=== PATIENT | male | born 1960 | race African-American/Black ===

== ENCOUNTER 2016-08-17 14:24 | Inpatient (IN) | payer OTHER ==
[2016-08-17 17:36] VITALS: BMI 26.4
--- NOTE | 2016-08-17 17:52 | HP ---
Admission ROS [facility] Chief Complaint: I AM HERE FOR REHAB FROM HEROIN,ALCOHOL AND COCAINE Allergies/Adverse Reactions: Allergies Allergy/AdvReac Type Severity Reaction Status Date / Time lactose Allergy Severe Verified 08/17/16 17:36 pork derived (porcine) Allergy Severe Rash Verified 08/17/16 17:36 History of Present Illness: THIS 56 YEARS OLD WITH HEROIN,ALCOHOL,COCAINE DEPENDENCE,REFER FROM [place] FOR REHAB,DISCHARGE FROM [place] TODAY HTN AND HYPERLIDEMIA LONGEST PERIOD OF SOBRIETY 8 YEARS Exam Limitations: No Limitations - Ebola screening Have you traveled outside of the country in the last 21 days: No Have you had contact with anyone from an Ebola affected area: No Have you been sick,other than usual withdrawal symptoms: No - Review of Systems Constitutional: No Symptoms Reported EENT: reports: No Symptoms Reported Respiratory: reports: No Symptoms reported Cardiac: reports: No Symptoms Reported GI: reports: No Symptoms Reported : reports: No Symptoms Reported Musculoskeletal: reports: No Symptoms Reported Integumentary: reports: No Symptoms Reported Neuro: reports: No Symptoms reported Endocrine: reports: No Symptoms Reported Hematology: reports: No Symptoms Reported Psychiatric: reports: No Sypmtoms Reported, Judgement Intact, Mood/Affect Appropiate Patient History - Patient Medical History Hx Anemia: No Hx Asthma: No Hx Chronic Obstructive Pulmonary Disease (COPD): No Hx Cancer: No Hx Cardiac Disorders: No Hx Congestive Heart Failure: No Hx Hypertension: Yes (NON COMPLIANT) Hx Hypercholesterolemia: Yes HX Cerebrovascular Accident: Yes (OLD CVA 2015 ) Hx Seizures: No Hx Dementia: No Hx Diabetes: No Hx Gastrointestinal Disorders: No Hx Liver Disease: No Hx Genitourinary Disorders: No Hx Sexually Transmitted Disorders: No Hx Renal Disease (ESRD): No Hx Thyroid Disease: No Hx Human Immunodeficiency Virus (HIV): No (LAST 2017 NEGATIVE) Hx Hepatitis C: No Hx Depression: No Hx Suicide Attempt: No Hx Bipolar Disorder: No Hx Schizophrenia: No Other Medical History: NO SUICIDAL,NO HOMICIDAL - Patient Surgical History Past Surgical History: No - PPD History Previous Implant?: Yes Documented Results: Positive w/o proof Implanted On Prior [facility] Admission?: No PPD to be Administered?: No - Smoking Cessation Smoking history: Current every day smoker Have you smoked in the past 12 months: Yes Aproximately how many cigarettes per day: 20 Cigars Per Day: 0 Hx Chewing Tobacco Use: No Initiated information on smoking cessation: Yes 'Breaking Loose' booklet given: 08/17/16 - Substance & Tx. History Hx Alcohol Use: Yes Hx Substance Use: Yes Substance Use Type: Alcohol, Cocaine, Heroin Hx Substance Use Treatment: Yes ([facility] DISCHARGE 08/17/16) Family Disease History - Family Disease History Family Disease History: Other: Father (DSA,ALCOHOL,), Mother (DSA, ALCOHOL,) Admission Physical Exam [facility] - Vital Signs Vital Signs: Vital Signs - 24 hr 08/17/16 17:34 Temperature 95.8 F L Pulse Rate 89 Respiratory 18 Rate Blood Pressure 140/85 - Physical General Appearance: Yes: Within Normal Limits HEENTM: Yes: Within Normal Limits, Hearing grossly Normal, Normal ENT Inspection , Normocephalic Respiratory: Yes: Lungs Clear, Normal Breath Sounds, No Respiratory Distress Neck: Yes: Within Normal Limits, Supple, Trachea in good position Breast: Yes: Within Normal Limits Cardiology: Yes: Within Normal Limits, Regular Rhythm, Regular Rate, S1, S2 Abdominal: Yes: Within Normal Limits, Normal Bowel Sounds, Flat, Soft Genitourinary: Yes: Within Normal Limits Back: Yes: Within Normal Limits Musculoskeletal: Yes: Within Normal Limits Extremities: Yes: Within Normal Limits, Normal Inspection, Normal Range of Motion Neurological: Yes: cut pressman II-XII NML intact, Fully Oriented, Alert, Motor Strength 5/5 Integumentary: Yes: Within Normal Limits Lymphatic: Yes: Within Normal Limits - Diagnostic (1) Opioid dependence Current Visit: Yes Status: Acute Comment: DEPENDENCE (2) Alcohol dependence Current Visit: Yes Status: Acute (3) Cocaine dependence Current Visit: Yes Status: Acute (4) Essential (primary) hypertension Current Visit: Yes Status: Acute (5) Hyperlipidemia Current Visit: Yes Status: Acute (6) Nicotine dependence Current Visit: Yes Status: Acute (7) Old cerebrovascular accident (CVA) without late effect Current Visit: Yes Status: Acute Cleared for Admission [facility] - Detox or Rehab Claeared for Rehab Admission: Yes [facility] Breath Alcohol Content Breath Alcohol Content: 0 Urine Drug Screen - Results Drug Screen Negative: No Urine Drug Screen Results: STACY-Cocaine, BZO-Benzodiazepines, MTD-Methadone
[2016-08-17] MEDS ORDERED: MAG HYDROX/AL HYDROX/SIMETH 30 ML UNIT-DOSE CUP PO PRN (18:08)
[2016-08-17] MEDS ORDERED: MENTHOL/PHENOL 1 EACH UD MM PRN (18:08)
[2016-08-17] MEDS ORDERED: MAGNESIUM CITRATE 300 ML BOTTLE PO PRN (18:08)
[2016-08-17] MEDS ORDERED: guaiFENesin/D-METHORPHAN HB 10 ML UNIT-DOSE CUPS PO PRN (18:08)
[2016-08-17] MEDS ORDERED: ACETAMINOPHEN 325 MG TABLET (FP) PO PRN (18:08)
[2016-08-17] MEDS ORDERED: hydrOXYzine PAMOATE 50 MG CAPSULE (FP) PO PRN (18:08)
[2016-08-17] MEDS ORDERED: MAGNESIUM HYDROX 2400MG/30ML ORAL SUSPENSION 30 ML CUP PO PRN (18:08)
[2016-08-17] MEDS ORDERED: LOPERAMIDE HCL 2 MG CAPSULE PO PRN (18:08)
[2016-08-17] MEDS ORDERED: IBUPROFEN 400 MG TABLET (FP) PO PRN (18:08)
[2016-08-17] MEDS: ATORVASTATIN CA 10 MG TABLET (FP) PO SCH (21:53)
[2016-08-17] MEDS: diphenhydrAMINE HCL 50 MG CAPSULE PO PRN (21:53)
[2016-08-17] MEDS: THIAMINE HCL 100 MG TABLET (FP) PO SCH (21:53)
[2016-08-17 23:30] LABS: URINE APPEARANCE CLEAR; URINE BILIRUBIN NEGATIVE (NEGATIVE); URINE BLOOD NEGATIVE (NEGATIVE); URINE COLOR STRAW; URINE GLUCOSE (UA) NEGATIVE (NEGATIVE); URINE KETONE NEGATIVE (NEGATIVE); URINE LEUK ESTERASE NEGATIVE (NEGATIVE); URINE NITRITE NEGATIVE (NEGATIVE); URINE PROTEIN NEGATIVE (NEGATIVE); URINE UROBILINOGEN NEGATIVE E.U./dl (0.2-1.0)
[2016-08-18] MEDS: LISINOPRIL 10 MG TABLET (FP) PO SCH (10:37)
[2016-08-18] MEDS: amLODIPine BESYLATE 5 MG TABLET (FP) PO SCH (10:37)
[2016-08-18] MEDS: PRENATAL VITAMINS W/ FOLIC ACID TABLET (FP) PO SCH (10:37)
--- NOTE | 2016-08-18 11:14 | EKG ---
Test Reason : Blood Pressure : / mmHG Vent. Rate : 096 BPM Atrial Rate : 096 BPM P-R Int : 120 ms QRS Dur : 084 ms QT Int : 348 ms P-R-T Axes : 068 044 046 degrees QTc Int : 439 ms NORMAL SINUS RHYTHM MODERATE VOLTAGE CRITERIA FOR LVH, MAY BE NORMAL VARIANT BORDERLINE ECG NO PREVIOUS ECGS AVAILABLE Confirmed by JESSICA DEL RIO MD ([id number]) on 08/18/2016 11:13:55 AM Referred By: Confirmed By:JESSICA DEL RIO MD
--- NOTE | 2016-08-18 11:15 | HP ---
Psychiatrist Admission - Data Date of interview: 08/18/16 Admission source: [facility] Identifying data: This is the first 5N inpatient rehabilitation admission for this 56 year old single black male, father of 2, who is unemployed and on SSI, currently homeless. Medical History: HTN and Hyperlipedemia , smokes cigarettes 10 a day. Psychiatric History: Patient denies history of psychiatric treatment. Physical/Sexual Abuse/Trauma History: Patient denies history of sexual, phsyical and verbal abuse. Additional Comment: Patient reports that he spent 2 days in detox at [facility] and was discharged, has not been feeling well since hie discharge and asked to stay in bed for a few hours. Vital Signs: Vital Signs - 24 hr 08/17/16 08/17/16 08/18/16 17:34 22:31 00:41 Temperature 95.8 F L Pulse Rate 89 99 H Respiratory 18 18 18 Rate Blood Pressure 140/85 144/77 08/18/16 08/18/16 03:30 06:41 Temperature 97.3 F L Pulse Rate 85 Respiratory 16 18 Rate Blood Pressure 126/71 Allergies/Adverse Reactions: Allergies Allergy/AdvReac Type Severity Reaction Status Date / Time lactose Allergy Severe Verified 08/17/16 17:36 pork derived (porcine) Allergy Severe Rash Verified 08/17/16 17:36 No Known Drug Allergies Allergy Verified 08/17/16 18:31 Date of last physical exam: 08/17/16 Concur with the findings of this exam: Yes - Substance Abuse/Tx History Hx Alcohol Use: Yes Hx Substance Use: Yes Substance Use Type: Alcohol (one half pint of vodka), Cocaine ($300 a day), Heroin (sniffs 7 bags a day.) Hx Substance Use Treatment: Yes - Admission Criteria Previous failed treatment: Yes Poor recovery environment: Yes Comorbidities: Yes Lacks judgement: Yes Mental Status Exam - Mental Status Exam Alert and Oriented to: Time, Place, Person Cognitive Function: Good Patient Appearance: Well Groomed Mood: Sad, Anxious Affect: Mood Congruent Patient Behavior: Appropriate, Cooperative Speech Pattern: Clear, Appropriate Voice Loudness: Normal Thought Process: Intact Thought Disorder: Not Present Hallucinations: Denies Suicidal Ideation: Denies Homicidal Ideation: Denies Insight/Judgement: Fair Sleep: Fair Appetite: Good Muscle strength/Tone: Normal Gait/Station: Normal Psychiatric Findings - Problem List ([place] 1, 2,3) (1) Alcohol dependence Current Visit: Yes Status: Acute (2) Cocaine dependence Current Visit: Yes Status: Acute (3) Essential (primary) hypertension Current Visit: Yes Status: Acute (4) Hyperlipidemia Current Visit: Yes Status: Acute (5) Nicotine dependence Current Visit: Yes Status: Acute (6) Opioid dependence Current Visit: Yes Status: Acute Comment: DEPENDENCE - Initial Treatment Plan Initial Treatment Plan: patient was referred to MD, he was made aware of Vistaril PRN for anxiety, he was excused from am groups, will billyitnue to monitor progress.
[2016-08-18] MEDS ORDERED: CYCLOBENZAPRINE HCL 10 MG TABLET (FP) PO PRN (11:47)
[2016-08-18] MEDS ORDERED: cloNIDine HCL 0.1 MG TABLET PO SCH (12:00)
[2016-08-18] MEDS: cloNIDine HCL 0.1 MG TABLET PO SCH ×2 (14:56→21:59)
[2016-08-18 15:54] LABS: MCH 22.5 pg (25.7-33.7); MCHC 30.8 g/dl (32.0-35.9); MEAN PLT VOLUME 8.5 fl (7.5-11.1); PLATELET COUNT 246 K/MM3 (134-434); RDW 15.2 % (11.9-15.9); WHITE BLOOD COUNT 4.9 K/mm3 (4.0-10.0)
[2016-08-18 16:25] LABS: ANION GAP 11 (8-16); BILIRUBIN,TOTAL 0.3 mg/dL (0.2-1.0); CALCIUM 8.5 mg/dL (8.5-10.1); CO2 28 mmol/L (21-32); COCKROFT - GAULT 101.4; CREATININE 1.1 mg/dL (0.7-1.3); GLUCOSE,RANDOM 121 mg/dL (74-106); SGOT/AST 19 U/L (15-37); SGPT/ALT 22 U/L (12-78); TOT PROT 6.3 g/dl (6.4-8.2)
[2016-08-18 16:26] LABS: ALK PHOS 66 U/L (45-117)
[2016-08-18 18:03] LABS: SICKLE CELL SCREEN NEGATIVE (NEGATIVE)
[2016-08-18 20:31] LABS: HIV 1 & 2 AB NEGATIVE; HIV 1 AGp24 NEGATIVE
[2016-08-18] MEDS: THIAMINE HCL 100 MG TABLET (FP) PO SCH (21:59)
[2016-08-18] MEDS: ATORVASTATIN CA 10 MG TABLET (FP) PO SCH (21:59)
[2016-08-18] MEDS: diphenhydrAMINE HCL 50 MG CAPSULE PO PRN (22:00)
[2016-08-19] MEDS: LISINOPRIL 10 MG TABLET (FP) PO SCH (10:49)
[2016-08-19] MEDS: PRENATAL VITAMINS W/ FOLIC ACID TABLET (FP) PO SCH (10:49)
[2016-08-19] MEDS: cloNIDine HCL 0.1 MG TABLET PO SCH ×2 (10:49→21:45)
[2016-08-19] MEDS: amLODIPine BESYLATE 5 MG TABLET (FP) PO SCH (10:49)
[2016-08-19] MEDS: ATORVASTATIN CA 10 MG TABLET (FP) PO SCH (21:45)
[2016-08-19] MEDS: THIAMINE HCL 100 MG TABLET (FP) PO SCH (21:45)
[2016-08-20] MEDS: LISINOPRIL 10 MG TABLET (FP) PO SCH (10:43)
[2016-08-20] MEDS: amLODIPine BESYLATE 5 MG TABLET (FP) PO SCH (10:43)
[2016-08-20] MEDS: cloNIDine HCL 0.1 MG TABLET PO SCH ×2 (10:43→21:44)
[2016-08-20] MEDS: PRENATAL VITAMINS W/ FOLIC ACID TABLET (FP) PO SCH (10:43)
[2016-08-20] MEDS: ATORVASTATIN CA 10 MG TABLET (FP) PO SCH (21:44)
[2016-08-20] MEDS: THIAMINE HCL 100 MG TABLET (FP) PO SCH (21:44)
[2016-08-20] MEDS: diphenhydrAMINE HCL 50 MG CAPSULE PO PRN (21:45)
[2016-08-21] MEDS: PRENATAL VITAMINS W/ FOLIC ACID TABLET (FP) PO SCH (10:54)
[2016-08-21] MEDS: cloNIDine HCL 0.1 MG TABLET PO SCH ×2 (10:54→22:09)
[2016-08-21] MEDS: LISINOPRIL 10 MG TABLET (FP) PO SCH (10:54)
[2016-08-21] MEDS: amLODIPine BESYLATE 5 MG TABLET (FP) PO SCH (10:54)
[2016-08-21] MEDS: THIAMINE HCL 100 MG TABLET (FP) PO SCH (22:09)
[2016-08-21] MEDS: diphenhydrAMINE HCL 50 MG CAPSULE PO PRN (22:09)
[2016-08-21] MEDS: ATORVASTATIN CA 10 MG TABLET (FP) PO SCH (22:09)
[2016-08-22] MEDS: PRENATAL VITAMINS W/ FOLIC ACID TABLET (FP) PO SCH (10:36)
[2016-08-22] MEDS: amLODIPine BESYLATE 5 MG TABLET (FP) PO SCH (10:36)
[2016-08-22] MEDS: LISINOPRIL 10 MG TABLET (FP) PO SCH (10:36)
[2016-08-22] MEDS: OXYMETAZOLINE 0.05% NASAL SOLUTION 15 ML BOTTLE NS PRN ×2 (10:47→21:41)
--- NOTE | 2016-08-22 12:45 | PN ---
[facility] Progress Note Note: POSSIBLE LIPOMA LEFT FRONTAL AREA SIZE 1X1 CM,NO PAIN,MOVABLE,HAS THIS FOR A WHILE, NO COMPLAINT,ADVISE TO SEE PCP AFER DISCHARGE FOR FOLLOW UP
[2016-08-22] MEDS: P-EPHED 60MG/TRIPROLIDI 2.5MG TABLET PO PRN (14:31)
[2016-08-22] MEDS: ATORVASTATIN CA 10 MG TABLET (FP) PO SCH (21:39)
[2016-08-22] MEDS: THIAMINE HCL 100 MG TABLET (FP) PO SCH (21:39)
[2016-08-23] MEDS: PRENATAL VITAMINS W/ FOLIC ACID TABLET (FP) PO SCH (10:32)
[2016-08-23] MEDS: amLODIPine BESYLATE 5 MG TABLET (FP) PO SCH (10:32)
[2016-08-23] MEDS: LISINOPRIL 10 MG TABLET (FP) PO SCH (10:32)
[2016-08-23] MEDS: P-EPHED 60MG/TRIPROLIDI 2.5MG TABLET PO PRN (10:34)
[2016-08-23] MEDS: ATORVASTATIN CA 10 MG TABLET (FP) PO SCH (21:45)
[2016-08-23] MEDS: THIAMINE HCL 100 MG TABLET (FP) PO SCH (21:45)
[2016-08-23] MEDS: OXYMETAZOLINE 0.05% NASAL SOLUTION 15 ML BOTTLE NS PRN (21:46)
[2016-08-23] MEDS: diphenhydrAMINE HCL 50 MG CAPSULE PO PRN (22:55)
[2016-08-24] MEDS: amLODIPine BESYLATE 5 MG TABLET (FP) PO SCH (10:17)
[2016-08-24] MEDS: LISINOPRIL 10 MG TABLET (FP) PO SCH (10:17)
[2016-08-24] MEDS: PRENATAL VITAMINS W/ FOLIC ACID TABLET (FP) PO SCH (10:17)
[2016-08-24] MEDS: P-EPHED 60MG/TRIPROLIDI 2.5MG TABLET PO PRN (10:18)
[2016-08-24] MEDS: THIAMINE HCL 100 MG TABLET (FP) PO SCH (21:54)
[2016-08-24] MEDS: diphenhydrAMINE HCL 50 MG CAPSULE PO PRN (21:54)
[2016-08-24] MEDS: ATORVASTATIN CA 10 MG TABLET (FP) PO SCH (21:54)
[2016-08-25] MEDS: PRENATAL VITAMINS W/ FOLIC ACID TABLET (FP) PO SCH (10:37)
[2016-08-25] MEDS: LISINOPRIL 10 MG TABLET (FP) PO SCH (10:37)
[2016-08-25] MEDS: amLODIPine BESYLATE 5 MG TABLET (FP) PO SCH (10:37)
[2016-08-25] MEDS: P-EPHED 60MG/TRIPROLIDI 2.5MG TABLET PO PRN (10:39)
[2016-08-25] MEDS: THIAMINE HCL 100 MG TABLET (FP) PO SCH (21:54)
[2016-08-25] MEDS: ATORVASTATIN CA 10 MG TABLET (FP) PO SCH (21:54)
[2016-08-25] MEDS: diphenhydrAMINE HCL 50 MG CAPSULE PO PRN (21:54)
[2016-08-25] MEDS: SODIUM CHLORIDE NASAL SPRAY 44 ML BOTTLE NS PRN (21:55)
[2016-08-26] MEDS: LISINOPRIL 10 MG TABLET (FP) PO SCH (10:20)
[2016-08-26] MEDS: PRENATAL VITAMINS W/ FOLIC ACID TABLET (FP) PO SCH (10:20)
[2016-08-26] MEDS: amLODIPine BESYLATE 5 MG TABLET (FP) PO SCH (10:20)
[2016-08-26] MEDS: THIAMINE HCL 100 MG TABLET (FP) PO SCH (21:55)
[2016-08-26] MEDS: ATORVASTATIN CA 10 MG TABLET (FP) PO SCH (21:55)
[2016-08-26] MEDS: diphenhydrAMINE HCL 50 MG CAPSULE PO PRN (21:55)
[2016-08-26] MEDS: SODIUM CHLORIDE NASAL SPRAY 44 ML BOTTLE NS PRN (21:57)
[2016-08-27] MEDS: PRENATAL VITAMINS W/ FOLIC ACID TABLET (FP) PO SCH (10:34)
[2016-08-27] MEDS: amLODIPine BESYLATE 5 MG TABLET (FP) PO SCH (10:34)
[2016-08-27] MEDS: LISINOPRIL 10 MG TABLET (FP) PO SCH (10:34)
[2016-08-27] MEDS: ATORVASTATIN CA 10 MG TABLET (FP) PO SCH (21:49)
[2016-08-27] MEDS: THIAMINE HCL 100 MG TABLET (FP) PO SCH (21:49)
[2016-08-27] MEDS: diphenhydrAMINE HCL 50 MG CAPSULE PO PRN (21:49)
[2016-08-27] MEDS: SODIUM CHLORIDE NASAL SPRAY 44 ML BOTTLE NS PRN (21:51)
[2016-08-28] MEDS: SODIUM CHLORIDE NASAL SPRAY 44 ML BOTTLE NS PRN ×2 (10:27→22:03)
[2016-08-28] MEDS: PRENATAL VITAMINS W/ FOLIC ACID TABLET (FP) PO SCH (10:27)
[2016-08-28] MEDS: amLODIPine BESYLATE 5 MG TABLET (FP) PO SCH (10:27)
[2016-08-28] MEDS: LISINOPRIL 10 MG TABLET (FP) PO SCH (10:27)
[2016-08-28] MEDS: ATORVASTATIN CA 10 MG TABLET (FP) PO SCH (22:03)
[2016-08-28] MEDS: diphenhydrAMINE HCL 50 MG CAPSULE PO PRN (22:03)
[2016-08-28] MEDS: THIAMINE HCL 100 MG TABLET (FP) PO SCH (22:03)
[2016-08-29] MEDS: amLODIPine BESYLATE 5 MG TABLET (FP) PO SCH (10:39)
[2016-08-29] MEDS: SODIUM CHLORIDE NASAL SPRAY 44 ML BOTTLE NS PRN (10:39)
[2016-08-29] MEDS: LISINOPRIL 10 MG TABLET (FP) PO SCH (10:39)
[2016-08-29] MEDS: PRENATAL VITAMINS W/ FOLIC ACID TABLET (FP) PO SCH (10:39)
--- NOTE | 2016-08-29 18:10 | PN ---
Psychiatric Progress Note Vital Signs: Vital Signs Period Temp Pulse Resp BP Sys/Yao Pulse Ox Last 24 Hr 98.3 F 76-95 16-18 109-142/75-75 Chief Complaint:: Discharge Note HPI: Patient addressing Alcohol, Opoid and Cocaine Dependence comorbid with Nicotine Depencence ROS: HTN, Hyperlipidemia and type 2 DM were medically managed Current Medications: Active Medications Generic Name Dose Route Start Last Admin Trade Name Freq PRN Reason Stop Dose Admin Acetaminophen 650 mg 08/17/16 18:08 08/18/16 10:39 Tylenol - PO 650 mg Q4H PRN Administration PAIN Al Hydroxide/Mg Hydroxide 30 ml 08/17/16 18:08 Mylanta Oral Suspension - PO Q6H PRN DYSPEPSIA Amlodipine Besylate 5 mg 08/18/16 10:00 08/29/16 10:39 Norvasc - PO 5 mg DAILY BUBBA Administration Atorvastatin Calcium 10 mg 08/17/16 22:00 08/28/16 22:03 Lipitor - PO 10 mg HS BUBBA Administration Diphenhydramine HCl 50 mg 08/17/16 18:08 08/28/16 22:03 Benadryl - PO 50 mg HSMR1 PRN Administration INSOMNIA Eucalyptus/Menthol/Phenol/Sorbitol 1 each 08/17/16 18:08 Cepastat Lozenge - MM Q4H PRN SORE THROAT Guaifenesin 10 ml 08/17/16 18:08 Robitussin Dm - PO Q6H PRN COUGH Hydroxyzine Pamoate 50 mg 08/17/16 18:08 08/18/16 10:39 Vistaril - PO 50 mg Q4H PRN Administration AGITATION Ibuprofen 400 mg 08/17/16 18:08 Motrin - PO Q6H PRN SEVERE PAIN Lisinopril 10 mg 08/18/16 10:00 08/29/16 10:39 Prinivil PO 10 mg DAILY UBBBA Administration Loperamide HCl 4 mg 08/17/16 18:08 Imodium - PO Q6H PRN DIARRHEA Magnesium Citrate 300 ml 08/17/16 18:08 Citroma - PO Q48H PRN CONSTIPATION Magnesium Hydroxide 30 ml 08/17/16 18:08 Milk Of Magnesia - PO DAILY PRN CONSTIPATION Multivit/Folic Acid/Iron 1 tab 08/18/16 10:00 08/29/16 10:39 Vitamins ([facility]) - PO 1 tab DAILY BUBBA Administration Pseudoephedrine/Triprolidine 1 combo 08/17/16 18:08 08/25/16 10:39 Actifed - PO 1 combo TID PRN Administration NASAL CONGESTION Sodium Chloride 2 spray 08/25/16 13:08 08/29/16 10:39 [place] - NS 2 spray TID PRN Administration NASAL CONGESTION Thiamine HCl 100 mg 08/17/16 22:00 08/28/16 22:03 Vitamin B1 - PO 100 mg HS BUBBA Administration Current Side Effect: No Lab tests ordered: Yes Lab tests reviewed: Yes Provider note:: Patient will be dischaged on 08/30/16. He has met his treatment goals and will continue addressing his issues in terminal gauger treatment at [facility] in [place], [place]. Told literary writer that from his participation in this program, he has learned the importance of establishing a sober support network. He is stable for discharge on 08/30/16 Total face to face time:: 35 Mental Status Exam - Mental Status Exam Alert and Oriented to: Time, Place, Person Cognitive Function: Fair Patient Appearance: Well Groomed Mood: Hopeful, Euthymic Affect: Appropriate Patient Behavior: Cooperative Speech Pattern: Clear Voice Loudness: Normal Thought Process: Intact, Goal Oriented Thought Disorder: Not Present Hallucinations: Denies Suicidal Ideation: Denies Homicidal Ideation: Denies Insight/Judgement: Fair Sleep: Fair Appetite: Good Muscle strength/Tone: Normal Gait/Station: Normal Psychiatric Treatment Plan - Problem List (1) Alcohol dependence Current Visit: Yes (2) Opioid dependence Current Visit: Yes Comment: DEPENDENCE (3) Cocaine dependence Current Visit: Yes (4) Nicotine dependence Current Visit: Yes (5) DM2 (diabetes mellitus, type 2) Current Visit: Yes (6) Essential (primary) hypertension Current Visit: Yes (7) Hyperlipidemia Current Visit: Yes (8) Old cerebrovascular accident (CVA) without late effect Current Visit: Yes Initial treatment plan: Patient will be discharged tomorow and referred to [facility] for senior living treatment
[2016-08-29] MEDS: ATORVASTATIN CA 10 MG TABLET (FP) PO SCH (21:42)
[2016-08-29] MEDS: THIAMINE HCL 100 MG TABLET (FP) PO SCH (21:42)
[2016-08-29] MEDS: diphenhydrAMINE HCL 50 MG CAPSULE PO PRN (21:42)
[2016-08-30 07:06] VITALS: BP 135/74; PULSE 78; TEMP 98.1
== END 2016-08-30 08:15 | disposition home or self-care (01) | DRG 772 ==
LOC: YASAS 14:24 → Y5N 17:39
PROVIDERS: ADMIT Psychiatry & Neurology Psychiatry; ATTEND Psychiatry & Neurology Psychiatry
PROC: HZ42ZZZ Group Counseling for Substance Abuse Treatment, Cognitive-Behavioral (ICD-10-PCS; principal; 2016-08-17)
DX: F11.20 Opioid dependence, uncomplicated (principal); F10.20 Alcohol dependence, uncomplicated; F14.20 Cocaine dependence, uncomplicated; F17.210 Nicotine dependence, cigarettes, uncomplicated; I10 Essential (primary) hypertension; E78.5 Hyperlipidemia, unspecified; Z86.73 Personal history of transient ischemic attack (TIA), and cerebral infarction without residual deficits; Z91.14 Patient's other noncompliance with medication regimen
CPT/HCPCS: 36415; 71020-TC; 80053; 81003; 85027; 85660; 86593; 87389; 93005; 93010

== ENCOUNTER 2017-01-18 15:53 | Inpatient (IN) | payer OTHER ==
[2017-01-18 18:21] VITALS: BMI 24.4
--- NOTE | 2017-01-18 22:25 | HP ---
Admission ROS [facility] - [facility] Chief Complaint: I WANT TO GO TO REHAB Allergies/Adverse Reactions: Allergies Allergy/AdvReac Type Severity Reaction Status Date / Time lactose Allergy Severe Verified 08/17/16 17:36 pork derived (porcine) Allergy Severe Rash Verified 08/17/16 17:36 No Known Drug Allergies Allergy Verified 08/17/16 18:31 History of Present Illness: 56 YEARS OLD MALE WITH LONG HISTORY OF HEROIN COCAINE NICOTINE DEPENDENCE HAS HYPERTENSION HYPERLIPIDEMIA POSITIVE PPD IS ADMITTED TO REHAB Exam Limitations: No Limitations - Ebola screening Have you traveled outside of the country in the last 21 days: No Have you had contact with anyone from an Ebola affected area: No Have you been sick,other than usual withdrawal symptoms: No Do you have a fever: No - Review of Systems Constitutional: Loss of Appetite, Unintentional Wgt. Loss, Unexplained wgt Loss EENT: reports: No Symptoms Reported Respiratory: reports: No Symptoms reported Cardiac: reports: No Symptoms Reported GI: reports: No Symptoms Reported : reports: No Symptoms Reported Musculoskeletal: reports: Back Pain Integumentary: reports: No Symptoms Reported Neuro: reports: No Symptoms reported Endocrine: reports: No Symptoms Reported Hematology: reports: No Symptoms Reported Psychiatric: reports: Judgement Intact, Mood/Affect Appropiate, Orientated x3 Other Systems: Reviewed and Negative Patient History - Patient Medical History Hx Anemia: No Hx Asthma: No Hx Chronic Obstructive Pulmonary Disease (COPD): No Hx Cancer: No Hx Cardiac Disorders: Yes (2014 STROKE) Hx Congestive Heart Failure: No Hx Hypertension: Yes Hx Hypercholesterolemia: Yes Hx Pacemaker: No HX Cerebrovascular Accident: Yes (OLD CVA 2015 ) Hx Seizures: No Hx Dementia: No Hx Diabetes: No Hx Gastrointestinal Disorders: No Hx Liver Disease: No Hx Genitourinary Disorders: No Hx Sexually Transmitted Disorders: No Hx Renal Disease (ESRD): No Hx Thyroid Disease: No Hx Human Immunodeficiency Virus (HIV): No (LAST 2016 NEGATIVE) Hx Hepatitis C: No Hx Depression: No Hx Suicide Attempt: No Hx Bipolar Disorder: No Hx Schizophrenia: No - Patient Surgical History Past Surgical History: No - PPD History Previous Implant?: Yes Documented Results: Positive w/o proof Implanted On Prior [facility] Admission?: No PPD to be Administered?: No - Smoking Cessation Smoking history: Current every day smoker Have you smoked in the past 12 months: Yes Aproximately how many cigarettes per day: 20 Cigars Per Day: 0 Hx Chewing Tobacco Use: No Initiated information on smoking cessation: Yes 'Breaking Loose' booklet given: 01/18/17 - Substance & Tx. History Hx Alcohol Use: No Hx Substance Use: Yes Substance Use Type: Cocaine, Heroin Hx Substance Use Treatment: Yes (08/17-08/30/16 [facility] - Substances Abused Heroin Route: Inhalation Frequency: Daily Amount used: 15 BAGS Age of first use: 27 Date of Last Use: 01/17/17 Family Disease History - Family Disease History Family Disease History: Other: Father (DSA,ALCOHOL,), Mother (DSA, ALCOHOL,) Admission Physical Exam S - Vital Signs Vital Signs: Vital Signs - 24 hr 01/18/17 18:15 Temperature 97.3 F L Pulse Rate 80 Respiratory 18 Rate Blood Pressure 140/90 - Physical General Appearance: Yes: No Apparent Distress, Appropriately Dressed, Thin HEENTM: Yes: Hearing grossly Normal, Normal ENT Inspection, Normocephalic, Normal Voice Respiratory: Yes: Chest Non-Tender, Lungs Clear, Normal Breath Sounds, No Respiratory Distress, No Accessory Muscle Use Neck: Yes: Supple, Trachea in good position Breast: Yes: Breasts Symetrical Cardiology: Yes: Regular Rhythm, Regular Rate, S1, S2 Abdominal: Yes: Normal Bowel Sounds, Non Tender, Soft Genitourinary: Yes: Within Normal Limits Back: Yes: Normal Inspection Musculoskeletal: Yes: full range of Motion, Gait Steady, Back pain (CHRONIC) Extremities: Yes: Normal Inspection, Normal Range of Motion, Non-Tender Neurological: Yes: Fully Oriented, Alert, Motor Strength 5/5, Normal Mood/Affect , Normal Response Integumentary: Yes: Warm Lymphatic: Yes: Within Normal Limits - Diagnostic (1) DM2 (diabetes mellitus, type 2) Current Visit: Yes Status: Chronic Qualifiers: Diabetes mellitus complication status: without complication Diabetes mellitus rat exterminator insulin use: without rat exterminator use Qualified Code(s): E11.9 - Type 2 diabetes mellitus without complications; E11.9 - Type 2 diabetes mellitus without complications; E11.9 - Type 2 diabetes mellitus without complications; E11.9 - Type 2 diabetes mellitus without complications (2) Essential (primary) hypertension Current Visit: Yes Status: Chronic (3) Hyperlipidemia Current Visit: Yes Status: Chronic Qualifiers: Hyperlipidemia type: pure hypercholesterolemia Qualified Code(s): E78.00 - Pure hypercholesterolemia, unspecified; E78.00 - Pure hypercholesterolemia, unspecified; E78.00 - Pure hypercholesterolemia, unspecified; E78.0 - Pure hypercholesterolemia (4) Nicotine dependence Current Visit: Yes Status: Acute Qualifiers: Nicotine product type: cigarettes Substance use status: in withdrawal Qualified Code(s): F17.213 - Nicotine dependence, cigarettes, with withdrawal; F17.213 - Nicotine dependence, cigarettes, with withdrawal (5) Weight loss Current Visit: Yes Status: Acute (6) Opioid dependence with withdrawal Current Visit: Yes Status: Acute (7) Chronic back pain Current Visit: Yes Status: Chronic Qualifiers: Back pain location: low back pain Back pain laterality: bilateral Sciatica presence: without sciatica Qualified Code(s): M54.5 - Low back pain; M54.5 - Low back pain; G89.29 - Other chronic pain; G89.29 - Other chronic pain Cleared for Admission [facility] - Detox or Rehab [facility] Level of Care: Observation Bed Detox Regimen/Protocol: Not Applicable Claeared for Rehab Admission: Yes [facility] Breath Alcohol Content Breath Alcohol Content: 0 Urine Drug Screen - Results Drug Screen Negative: No Urine Drug Screen Results: STACY-Cocaine, BZO-Benzodiazepines Inpatient Rehab Admission - Initial Determination Are CD services needed?: Yes Free of communicable disease: Yes Not in need of hospitalization: Yes - Rehab Admission Criteria Previous failed treatment: Yes Poor recovery environment: Yes Comorbidities: Yes Lacks judgement: No Patient is meeting Inpatient Rehab admission criteria:: Yes
[2017-01-18] MEDS ORDERED: MENTHOL/PHENOL 1 EACH UD MM PRN (22:26)
[2017-01-18] MEDS ORDERED: LOPERAMIDE HCL 2 MG CAPSULE PO PRN (22:26)
[2017-01-18] MEDS ORDERED: MAGNESIUM HYDROX 2400MG/30ML ORAL SUSPENSION 30 ML CUP PO PRN (22:26)
[2017-01-18] MEDS ORDERED: ACETAMINOPHEN 325 MG TABLET (FP) PO PRN (22:26)
[2017-01-18] MEDS ORDERED: P-EPHED 60MG/TRIPROLIDI 2.5MG TABLET PO PRN (22:26)
[2017-01-18] MEDS ORDERED: diphenhydrAMINE HCL 50 MG CAPSULE PO PRN (22:26)
[2017-01-18] MEDS ORDERED: MAG HYDROX/AL HYDROX/SIMETH 30 ML UNIT-DOSE CUP PO PRN (22:26)
[2017-01-18] MEDS ORDERED: guaiFENesin/D-METHORPHAN HB 10 ML UNIT-DOSE CUPS PO PRN (22:26)
[2017-01-18] MEDS ORDERED: NICOTINE POLACRILEX 4 MG GUM BUC PRN (22:26)
[2017-01-18] MEDS ORDERED: IBUPROFEN 400 MG TABLET (FP) PO PRN (22:26)
[2017-01-18] MEDS ORDERED: MAGNESIUM CITRATE 300 ML BOTTLE PO PRN (22:26)
[2017-01-18] MEDS ORDERED: BACLOFEN 10 MG TABLET (FP) PO PRN (22:28)
[2017-01-19 01:50] LABS: URINE APPEARANCE SLCLOUDY; URINE BLOOD NEGATIVE (NEGATIVE); URINE COLOR YELLOW; URINE GLUCOSE (UA) NEGATIVE (NEGATIVE); URINE KETONE NEGATIVE (NEGATIVE); URINE NITRITE NEGATIVE (NEGATIVE)
[2017-01-19 01:55] LABS: URINE PROTEIN 1+ (NEGATIVE)
[2017-01-19 02:19] LABS: URINE MUCUS MANY; URINE RBC <1 /hpf (0-3); URINE WBC 1 /hpf (3-5)
[2017-01-19] MEDS: metFORMIN HCL 500 MG TABLET (FP) PO SCH ×2 (06:08→17:18)
[2017-01-19] MEDS: SODIUM CHLORIDE NASAL SPRAY 44 ML BOTTLE NS SCH ×3 (06:10→21:10)
--- NOTE | 2017-01-19 09:22 | EKG ---
Test Reason : Blood Pressure : / mmHG Vent. Rate : 068 BPM Atrial Rate : 068 BPM P-R Int : 120 ms QRS Dur : 092 ms QT Int : 414 ms P-R-T Axes : 061 050 058 degrees QTc Int : 440 ms NORMAL SINUS RHYTHM WITH SINUS ARRHYTHMIA MODERATE VOLTAGE CRITERIA FOR LVH, MAY BE NORMAL VARIANT WHEN COMPARED WITH ECG OF 17-AUG-2016 22:09, NO SIGNIFICANT CHANGE WAS FOUND Confirmed by JESSICA DEL RIO MD ([id number]) on 01/19/2017 9:22:40 AM Referred By: Confirmed By:JESSICA DEL RIO MD
[2017-01-19] MEDS: LISINOPRIL 20 MG TABLET (FP) PO SCH (09:54)
[2017-01-19] MEDS: NICOTINE 21 MG/24 HOURS TOPICAL PATCH TD SCH (09:54)
[2017-01-19] MEDS: amLODIPine BESYLATE 5 MG TABLET (FP) PO SCH (09:54)
[2017-01-19] MEDS: PRENATAL VITAMINS W/ FOLIC ACID TABLET (FP) PO SCH (09:54)
[2017-01-19] MEDS ORDERED: LORATADINE 10 MG TABLET PO SCH (10:00)
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
[2017-01-19] MEDS ORDERED: TETANUS AND DIPHTHERIA TOXOID 0.5 ML DISP.SYRIN IM ONE (10:31)
[2017-01-19 10:50] LABS: URINE LEUK ESTERASE Negative (NEGATIVE)
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
[2017-01-19] MEDS: ESCITALOPRAM OXALATE 10 MG TABLET (FP) PO SCH (12:19)
[2017-01-19] MEDS: NAPROXEN 500 MG TABLET (FP) PO SCH ×2 (12:19→21:09)
[2017-01-19] MEDS: PANTOPRAZOLE 40 MG TABLET (FP) PO SCH (12:19)
[2017-01-19] MEDS: CEPHALEXIN MONOHYDRATE 500 MG CAPSULE (UD) PO SCH ×2 (12:20→17:36)
[2017-01-19] MEDS ORDERED: FLU VACCINE QUAD 60 MCG/0.5 ML (MDV 17-18) IM ONE (13:00)
[2017-01-19] MEDS: FLUTICASONE PROP 0.05% 16 GM NASAL SPRAY NS SCH ×2 (14:59→21:09)
[2017-01-19 15:19] LABS: ALBUMIN 3.7 g/dl (3.4-5.0); ALK PHOS 80 U/L (45-117); ANION GAP 9 (8-16); BILIRUBIN,TOTAL 0.4 mg/dL (0.2-1.0); CALCIUM 8.8 mg/dL (8.5-10.1); CO2 29 mmol/L (21-32); CREATININE 1.1 mg/dL (0.7-1.3); GLUCOSE,RANDOM 120 mg/dL (74-106); SGOT/AST 18 U/L (15-37); SGPT/ALT 19 U/L (12-78); TOT PROT 7.3 g/dl (6.4-8.2)
[2017-01-19 15:34] LABS: MCH 23.3 pg (25.7-33.7); MCHC 32.6 g/dl (32.0-35.9); MEAN CELL VOLUME 71.4 fl (80-96); MEAN PLT VOLUME 8.5 fl (7.5-11.1); PLATELET COUNT 285 K/MM3 (134-434); RDW 16.1 % (11.9-15.9); WHITE BLOOD COUNT 4.4 K/mm3 (4.0-10.0)
[2017-01-19] MEDS: ATORVASTATIN CA 10 MG TABLET (FP) PO SCH (21:09)
[2017-01-19] MEDS: THIAMINE HCL 100 MG TABLET (FP) PO SCH (21:09)
[2017-01-20] MEDS: CEPHALEXIN MONOHYDRATE 500 MG CAPSULE (UD) PO SCH ×5 (00:10→23:32)
[2017-01-20] MEDS: metFORMIN HCL 500 MG TABLET (FP) PO SCH ×2 (06:43→17:03)
[2017-01-20] MEDS: SODIUM CHLORIDE NASAL SPRAY 44 ML BOTTLE NS SCH ×3 (06:43→21:06)
[2017-01-20] MEDS: amLODIPine BESYLATE 5 MG TABLET (FP) PO SCH (10:15)
[2017-01-20] MEDS: ESCITALOPRAM OXALATE 10 MG TABLET (FP) PO SCH (10:15)
[2017-01-20] MEDS: LISINOPRIL 20 MG TABLET (FP) PO SCH (10:15)
[2017-01-20] MEDS: PRENATAL VITAMINS W/ FOLIC ACID TABLET (FP) PO SCH (10:15)
[2017-01-20] MEDS: PANTOPRAZOLE 40 MG TABLET (FP) PO SCH (10:15)
[2017-01-20] MEDS: NICOTINE 21 MG/24 HOURS TOPICAL PATCH TD SCH (10:16)
[2017-01-20] MEDS: NAPROXEN 500 MG TABLET (FP) PO SCH ×2 (10:18→21:06)
[2017-01-20] MEDS: FLUTICASONE PROP 0.05% 16 GM NASAL SPRAY NS SCH ×2 (10:18→21:08)
[2017-01-20 13:24] LABS: HIV 1 & 2 AB NEGATIVE; HIV 1 AGp24 NEGATIVE
[2017-01-20] MEDS: ATORVASTATIN CA 10 MG TABLET (FP) PO SCH (21:06)
[2017-01-20] MEDS: THIAMINE HCL 100 MG TABLET (FP) PO SCH (21:06)
[2017-01-21] MEDS: metFORMIN HCL 500 MG TABLET (FP) PO SCH ×2 (06:56→16:47)
[2017-01-21] MEDS: SODIUM CHLORIDE NASAL SPRAY 44 ML BOTTLE NS SCH ×3 (06:56→21:06)
[2017-01-21] MEDS: CEPHALEXIN MONOHYDRATE 500 MG CAPSULE (UD) PO SCH ×4 (06:56→23:43)
[2017-01-21] MEDS: PANTOPRAZOLE 40 MG TABLET (FP) PO SCH (09:57)
[2017-01-21] MEDS: ESCITALOPRAM OXALATE 10 MG TABLET (FP) PO SCH (09:57)
[2017-01-21] MEDS: LISINOPRIL 20 MG TABLET (FP) PO SCH (09:57)
[2017-01-21] MEDS: NAPROXEN 500 MG TABLET (FP) PO SCH ×2 (09:57→21:05)
[2017-01-21] MEDS: FLUTICASONE PROP 0.05% 16 GM NASAL SPRAY NS SCH ×2 (09:57→21:06)
[2017-01-21] MEDS: amLODIPine BESYLATE 5 MG TABLET (FP) PO SCH (09:58)
[2017-01-21] MEDS: NICOTINE 21 MG/24 HOURS TOPICAL PATCH TD SCH (09:58)
[2017-01-21] MEDS: PRENATAL VITAMINS W/ FOLIC ACID TABLET (FP) PO SCH (09:58)
[2017-01-21] MEDS: THIAMINE HCL 100 MG TABLET (FP) PO SCH (21:05)
[2017-01-21] MEDS: ATORVASTATIN CA 10 MG TABLET (FP) PO SCH (21:05)
[2017-01-22] MEDS: CEPHALEXIN MONOHYDRATE 500 MG CAPSULE (UD) PO SCH ×3 (06:09→17:02)
[2017-01-22] MEDS: SODIUM CHLORIDE NASAL SPRAY 44 ML BOTTLE NS SCH ×3 (06:09→21:11)
[2017-01-22] MEDS: metFORMIN HCL 500 MG TABLET (FP) PO SCH ×2 (06:09→16:42)
[2017-01-22] MEDS: PRENATAL VITAMINS W/ FOLIC ACID TABLET (FP) PO SCH (09:38)
[2017-01-22] MEDS: NAPROXEN 500 MG TABLET (FP) PO SCH ×2 (09:38→21:10)
[2017-01-22] MEDS: amLODIPine BESYLATE 5 MG TABLET (FP) PO SCH (09:38)
[2017-01-22] MEDS: ESCITALOPRAM OXALATE 10 MG TABLET (FP) PO SCH (09:38)
[2017-01-22] MEDS: FLUTICASONE PROP 0.05% 16 GM NASAL SPRAY NS SCH ×2 (09:39→21:10)
[2017-01-22] MEDS: NICOTINE 21 MG/24 HOURS TOPICAL PATCH TD SCH (09:39)
[2017-01-22] MEDS: LISINOPRIL 20 MG TABLET (FP) PO SCH (09:39)
[2017-01-22] MEDS: PANTOPRAZOLE 40 MG TABLET (FP) PO SCH (09:39)
--- NOTE | 2017-01-22 12:47 | PN ---
[facility] Progress Note (SOAP) Subjective: hand swelling much imporved still some pain unable to have full rom Objective: 01/22/17 12:43 Vital Signs - 24 hr 01/22/17 01/22/17 01/22/17 00:29 03:18 06:36 Temperature 98.4 F Pulse Rate 62 Respiratory 16 16 18 Rate Blood Pressure 112/80 Laboratory Tests 01/18/17 01/19/17 01/19/17 22:53 06:09 08:30 WBC 4.4 RBC 5.34 Hgb 12.4 Hct 38.1 MCV 71.4 L MCH 23.3 L MCHC 32.6 RDW 16.1 H Plt Count 285 MPV 8.5 Sodium Potassium Chloride Carbon Dioxide Anion Gap BUN Creatinine Creat Clearance w eGFR POC Glucometer 111 Random Glucose Hemoglobin A1c % Calcium Total Bilirubin AST ALT Alkaline Phosphatase Total Protein Albumin Urine Color Yellow Urine Appearance Slcloudy Urine pH 7.0 D Ur Specific Crosby 1.020 Urine Protein 1+ H Urine Glucose (UA) Negative Urine Ketones Negative Urine Blood Negative Urine Nitrite Negative Urine Bilirubin 2.0 Urine Urobilinogen 2.0 Ur Leukocyte Esterase Negative Urine RBC <1 Urine WBC 1 Urine Mucus Many RPR Titer HIV 1&2 Antibody Screen HIV P24 Antigen 01/19/17 01/19/17 01/19/17 08:30 08:30 08:30 WBC RBC Hgb Hct MCV MCH MCHC RDW Plt Count MPV Sodium 141 Potassium 3.8 Chloride 103 Carbon Dioxide 29 Anion Gap 9 BUN 21 H D Creatinine 1.1 Creat Clearance w eGFR > 60 POC Glucometer Random Glucose 120 H Hemoglobin A1c % 6.8 H Calcium 8.8 Total Bilirubin 0.4 D AST 18 ALT 19 Alkaline Phosphatase 80 D Total Protein 7.3 Albumin 3.7 D Urine Color Urine Appearance Urine pH Ur Specific Crosby Urine Protein Urine Glucose (UA) Urine Ketones Urine Blood Urine Nitrite Urine Bilirubin Urine Urobilinogen Ur Leukocyte Esterase Urine RBC Urine WBC Urine Mucus RPR Titer Nonreactive HIV 1&2 Antibody Screen HIV P24 Antigen 01/19/17 01/19/17 01/20/17 10:00 16:32 06:42 WBC RBC Hgb Hct MCV MCH MCHC RDW Plt Count MPV Sodium Potassium Chloride Carbon Dioxide Anion Gap BUN Creatinine Creat Clearance w eGFR POC Glucometer 122 136 Random Glucose Hemoglobin A1c % Calcium Total Bilirubin AST ALT Alkaline Phosphatase Total Protein Albumin Urine Color Urine Appearance Urine pH Ur Specific [place] Urine Protein Urine Glucose (UA) Urine Ketones Urine Blood Urine Nitrite Urine Bilirubin Urine Urobilinogen Ur Leukocyte Esterase Urine RBC Urine WBC Urine Mucus RPR Titer HIV 1&2 Antibody Screen Negative HIV P24 Antigen Negative 01/20/17 01/21/17 01/21/17 16:38 06:55 16:46 WBC RBC Hgb Hct MCV MCH MCHC RDW Plt Count MPV Sodium Potassium Chloride Carbon Dioxide Anion Gap BUN Creatinine Creat Clearance w eGFR POC Glucometer 114 114 118 Random Glucose Hemoglobin A1c % Calcium Total Bilirubin AST ALT Alkaline Phosphatase Total Protein Albumin Urine Color Urine Appearance Urine pH Ur Specific [place] Urine Protein Urine Glucose (UA) Urine Ketones Urine Blood Urine Nitrite Urine Bilirubin Urine Urobilinogen Ur Leukocyte Esterase Urine RBC Urine WBC Urine Mucus RPR Titer HIV 1&2 Antibody Screen HIV P24 Antigen 01/22/17 06:08 WBC RBC Hgb Hct MCV MCH MCHC RDW Plt Count MPV Sodium Potassium Chloride Carbon Dioxide Anion Gap BUN Creatinine Creat Clearance w eGFR POC Glucometer 156 Random Glucose Hemoglobin A1c % Calcium Total Bilirubin AST ALT Alkaline Phosphatase Total Protein Albumin Urine Color Urine Appearance Urine pH Ur Specific [place] Urine Protein Urine Glucose (UA) Urine Ketones Urine Blood Urine Nitrite Urine Bilirubin Urine Urobilinogen Ur Leukocyte Esterase Urine RBC Urine WBC Urine Mucus RPR Titer HIV 1&2 Antibody Screen HIV P24 Antigen 01/22/17 12:44 decreased swelling, no erythema or redness noted, cellulitis resolved, limited ROM from swelling Assessment: 01/22/17 12:45 xray reports multiple fx r metacarpals old and new orthopedic follow up recommended Plan: patient informed of results, wishes to complete rehab at this time and not go to hospital, cont antibiotics, atc pain medicaiton with naprosyn, clinically imporved blood sugar controlled left message with orthopedics to follow up on idscharge for care. If condition worsens should be sent to ED for evaluation.
[2017-01-22] MEDS: LIDOCAINE 5% TOPICAL PATCH TP SCH (13:56)
[2017-01-22] MEDS: ATORVASTATIN CA 10 MG TABLET (FP) PO SCH (21:10)
[2017-01-22] MEDS: THIAMINE HCL 100 MG TABLET (FP) PO SCH (21:10)
[2017-01-22] MEDS: LIDOCAINE PATCH REMOVAL MC SCH (21:10)
[2017-01-22] MEDS: diphenhydrAMINE HCL 50 MG CAPSULE PO PRN (21:11)
[2017-01-23] MEDS: CEPHALEXIN MONOHYDRATE 500 MG CAPSULE (UD) PO SCH ×5 (00:16→22:59)
[2017-01-23] MEDS: metFORMIN HCL 500 MG TABLET (FP) PO SCH ×2 (06:31→16:35)
[2017-01-23] MEDS: SODIUM CHLORIDE NASAL SPRAY 44 ML BOTTLE NS SCH ×3 (06:32→21:04)
[2017-01-23] MEDS: amLODIPine BESYLATE 5 MG TABLET (FP) PO SCH (09:26)
[2017-01-23] MEDS: LISINOPRIL 20 MG TABLET (FP) PO SCH (09:26)
[2017-01-23] MEDS: NAPROXEN 500 MG TABLET (FP) PO SCH ×2 (09:26→21:05)
[2017-01-23] MEDS: FLUTICASONE PROP 0.05% 16 GM NASAL SPRAY NS SCH ×2 (09:27→21:05)
[2017-01-23] MEDS: ESCITALOPRAM OXALATE 10 MG TABLET (FP) PO SCH (09:27)
[2017-01-23] MEDS: PANTOPRAZOLE 40 MG TABLET (FP) PO SCH (09:28)
[2017-01-23] MEDS: PRENATAL VITAMINS W/ FOLIC ACID TABLET (FP) PO SCH (09:28)
[2017-01-23] MEDS: LIDOCAINE 5% TOPICAL PATCH TP SCH (09:29)
[2017-01-23] MEDS: NICOTINE 21 MG/24 HOURS TOPICAL PATCH TD SCH (09:29)
[2017-01-23] MEDS: THIAMINE HCL 100 MG TABLET (FP) PO SCH (21:04)
[2017-01-23] MEDS: diphenhydrAMINE HCL 50 MG CAPSULE PO PRN (21:05)
[2017-01-23] MEDS: ATORVASTATIN CA 10 MG TABLET (FP) PO SCH (21:05)
[2017-01-23] MEDS: LIDOCAINE PATCH REMOVAL MC SCH (21:05)
[2017-01-24] MEDS: CEPHALEXIN MONOHYDRATE 500 MG CAPSULE (UD) PO SCH ×4 (06:38→23:07)
[2017-01-24] MEDS: metFORMIN HCL 500 MG TABLET (FP) PO SCH ×2 (06:38→16:35)
[2017-01-24] MEDS: SODIUM CHLORIDE NASAL SPRAY 44 ML BOTTLE NS SCH ×3 (06:39→21:06)
[2017-01-24] MEDS: NICOTINE 21 MG/24 HOURS TOPICAL PATCH TD SCH (09:59)
[2017-01-24] MEDS: PRENATAL VITAMINS W/ FOLIC ACID TABLET (FP) PO SCH (09:59)
[2017-01-24] MEDS: LISINOPRIL 20 MG TABLET (FP) PO SCH (09:59)
[2017-01-24] MEDS: amLODIPine BESYLATE 5 MG TABLET (FP) PO SCH (09:59)
[2017-01-24] MEDS: NAPROXEN 500 MG TABLET (FP) PO SCH ×2 (09:59→21:05)
[2017-01-24] MEDS: ESCITALOPRAM OXALATE 10 MG TABLET (FP) PO SCH (10:00)
[2017-01-24] MEDS: PANTOPRAZOLE 40 MG TABLET (FP) PO SCH (10:00)
[2017-01-24] MEDS: LIDOCAINE 5% TOPICAL PATCH TP SCH (10:00)
[2017-01-24] MEDS: FLUTICASONE PROP 0.05% 16 GM NASAL SPRAY NS SCH ×2 (10:01→21:06)
[2017-01-24] MEDS: diphenhydrAMINE HCL 50 MG CAPSULE PO PRN (21:05)
[2017-01-24] MEDS: THIAMINE HCL 100 MG TABLET (FP) PO SCH (21:05)
[2017-01-24] MEDS: ATORVASTATIN CA 10 MG TABLET (FP) PO SCH (21:05)
[2017-01-24] MEDS: LIDOCAINE PATCH REMOVAL MC SCH (21:06)
[2017-01-25] MEDS: metFORMIN HCL 500 MG TABLET (FP) PO SCH ×2 (06:12→16:42)
[2017-01-25] MEDS: CEPHALEXIN MONOHYDRATE 500 MG CAPSULE (UD) PO SCH ×4 (06:12→23:59)
[2017-01-25] MEDS: SODIUM CHLORIDE NASAL SPRAY 44 ML BOTTLE NS SCH ×3 (06:13→21:05)
[2017-01-25] MEDS: ESCITALOPRAM OXALATE 10 MG TABLET (FP) PO SCH (09:29)
[2017-01-25] MEDS: NAPROXEN 500 MG TABLET (FP) PO SCH ×2 (09:29→21:03)
[2017-01-25] MEDS: PANTOPRAZOLE 40 MG TABLET (FP) PO SCH (09:29)
[2017-01-25] MEDS: PRENATAL VITAMINS W/ FOLIC ACID TABLET (FP) PO SCH (09:29)
[2017-01-25] MEDS: NICOTINE 21 MG/24 HOURS TOPICAL PATCH TD SCH (09:29)
[2017-01-25] MEDS: LISINOPRIL 20 MG TABLET (FP) PO SCH (09:29)
[2017-01-25] MEDS: amLODIPine BESYLATE 5 MG TABLET (FP) PO SCH (09:29)
[2017-01-25] MEDS: FLUTICASONE PROP 0.05% 16 GM NASAL SPRAY NS SCH ×2 (09:30→21:04)
[2017-01-25] MEDS: LIDOCAINE 5% TOPICAL PATCH TP SCH (09:30)
[2017-01-25] MEDS: diphenhydrAMINE HCL 50 MG CAPSULE PO PRN (21:03)
[2017-01-25] MEDS: ATORVASTATIN CA 10 MG TABLET (FP) PO SCH (21:03)
[2017-01-25] MEDS: THIAMINE HCL 100 MG TABLET (FP) PO SCH (21:03)
[2017-01-25] MEDS: LIDOCAINE PATCH REMOVAL MC SCH (21:04)
[2017-01-26] MEDS: CEPHALEXIN MONOHYDRATE 500 MG CAPSULE (UD) PO SCH ×4 (06:29→23:13)
[2017-01-26] MEDS: metFORMIN HCL 500 MG TABLET (FP) PO SCH ×2 (06:29→16:54)
[2017-01-26] MEDS: SODIUM CHLORIDE NASAL SPRAY 44 ML BOTTLE NS SCH ×3 (07:06→22:03)
[2017-01-26] MEDS: PRENATAL VITAMINS W/ FOLIC ACID TABLET (FP) PO SCH (09:56)
[2017-01-26] MEDS: LISINOPRIL 20 MG TABLET (FP) PO SCH (09:57)
[2017-01-26] MEDS: ESCITALOPRAM OXALATE 10 MG TABLET (FP) PO SCH (09:57)
[2017-01-26] MEDS: PANTOPRAZOLE 40 MG TABLET (FP) PO SCH (09:57)
[2017-01-26] MEDS: NAPROXEN 500 MG TABLET (FP) PO SCH ×2 (09:57→22:02)
[2017-01-26] MEDS: FLUTICASONE PROP 0.05% 16 GM NASAL SPRAY NS SCH ×2 (09:58→22:01)
[2017-01-26] MEDS: LIDOCAINE 5% TOPICAL PATCH TP SCH (10:08)
[2017-01-26] MEDS: amLODIPine BESYLATE 5 MG TABLET (FP) PO SCH (10:09)
[2017-01-26] MEDS: NICOTINE 21 MG/24 HOURS TOPICAL PATCH TD SCH (10:09)
[2017-01-26] MEDS: THIAMINE HCL 100 MG TABLET (FP) PO SCH (22:02)
[2017-01-26] MEDS: diphenhydrAMINE HCL 50 MG CAPSULE PO PRN (22:02)
[2017-01-26] MEDS: ATORVASTATIN CA 10 MG TABLET (FP) PO SCH (22:02)
[2017-01-26] MEDS: LIDOCAINE PATCH REMOVAL MC SCH (22:03)
[2017-01-27] MEDS: metFORMIN HCL 500 MG TABLET (FP) PO SCH ×2 (06:36→16:40)
[2017-01-27] MEDS: CEPHALEXIN MONOHYDRATE 500 MG CAPSULE (UD) PO SCH ×3 (06:36→17:06)
[2017-01-27] MEDS: SODIUM CHLORIDE NASAL SPRAY 44 ML BOTTLE NS SCH ×3 (07:00→21:53)
[2017-01-27] MEDS: amLODIPine BESYLATE 5 MG TABLET (FP) PO SCH (10:19)
[2017-01-27] MEDS: PRENATAL VITAMINS W/ FOLIC ACID TABLET (FP) PO SCH (10:19)
[2017-01-27] MEDS: LISINOPRIL 20 MG TABLET (FP) PO SCH (10:19)
[2017-01-27] MEDS: NAPROXEN 500 MG TABLET (FP) PO SCH ×2 (10:19→21:53)
[2017-01-27] MEDS: LIDOCAINE 5% TOPICAL PATCH TP SCH (10:20)
[2017-01-27] MEDS: NICOTINE 21 MG/24 HOURS TOPICAL PATCH TD SCH (10:20)
[2017-01-27] MEDS: ESCITALOPRAM OXALATE 10 MG TABLET (FP) PO SCH (10:20)
[2017-01-27] MEDS: PANTOPRAZOLE 40 MG TABLET (FP) PO SCH (10:22)
[2017-01-27] MEDS: FLUTICASONE PROP 0.05% 16 GM NASAL SPRAY NS SCH ×2 (10:23→21:53)
[2017-01-27] MEDS: ATORVASTATIN CA 10 MG TABLET (FP) PO SCH (21:53)
[2017-01-27] MEDS: diphenhydrAMINE HCL 50 MG CAPSULE PO PRN (21:53)
[2017-01-27] MEDS: LIDOCAINE PATCH REMOVAL MC SCH (21:53)
[2017-01-27] MEDS: THIAMINE HCL 100 MG TABLET (FP) PO SCH (21:54)
[2017-01-28] MEDS: CEPHALEXIN MONOHYDRATE 500 MG CAPSULE (UD) PO SCH ×5 (00:12→23:35)
[2017-01-28] MEDS: metFORMIN HCL 500 MG TABLET (FP) PO SCH ×2 (06:44→16:36)
[2017-01-28] MEDS: SODIUM CHLORIDE NASAL SPRAY 44 ML BOTTLE NS SCH ×3 (06:54→21:50)
[2017-01-28] MEDS: NAPROXEN 500 MG TABLET (FP) PO SCH ×2 (10:51→21:49)
[2017-01-28] MEDS: ESCITALOPRAM OXALATE 10 MG TABLET (FP) PO SCH (10:51)
[2017-01-28] MEDS: LISINOPRIL 20 MG TABLET (FP) PO SCH (10:51)
[2017-01-28] MEDS: PANTOPRAZOLE 40 MG TABLET (FP) PO SCH (10:51)
[2017-01-28] MEDS: NICOTINE 21 MG/24 HOURS TOPICAL PATCH TD SCH (10:51)
[2017-01-28] MEDS: amLODIPine BESYLATE 5 MG TABLET (FP) PO SCH (10:51)
[2017-01-28] MEDS: LIDOCAINE 5% TOPICAL PATCH TP SCH (10:51)
[2017-01-28] MEDS: FLUTICASONE PROP 0.05% 16 GM NASAL SPRAY NS SCH ×2 (10:52→21:49)
[2017-01-28] MEDS: PRENATAL VITAMINS W/ FOLIC ACID TABLET (FP) PO SCH (10:52)
[2017-01-28] MEDS: ATORVASTATIN CA 10 MG TABLET (FP) PO SCH (21:49)
[2017-01-28] MEDS: diphenhydrAMINE HCL 50 MG CAPSULE PO PRN (21:49)
[2017-01-28] MEDS: LIDOCAINE PATCH REMOVAL MC SCH (21:49)
[2017-01-28] MEDS: THIAMINE HCL 100 MG TABLET (FP) PO SCH (21:50)
[2017-01-29] MEDS: metFORMIN HCL 500 MG TABLET (FP) PO SCH ×2 (06:42→16:57)
[2017-01-29] MEDS: SODIUM CHLORIDE NASAL SPRAY 44 ML BOTTLE NS SCH ×3 (06:42→21:37)
[2017-01-29] MEDS: CEPHALEXIN MONOHYDRATE 500 MG CAPSULE (UD) PO SCH ×2 (06:42→13:00)
[2017-01-29] MEDS: LISINOPRIL 20 MG TABLET (FP) PO SCH (10:33)
[2017-01-29] MEDS: PANTOPRAZOLE 40 MG TABLET (FP) PO SCH (10:33)
[2017-01-29] MEDS: amLODIPine BESYLATE 5 MG TABLET (FP) PO SCH (10:33)
[2017-01-29] MEDS: PRENATAL VITAMINS W/ FOLIC ACID TABLET (FP) PO SCH (10:33)
[2017-01-29] MEDS: NAPROXEN 500 MG TABLET (FP) PO SCH ×2 (10:33→21:37)
[2017-01-29] MEDS: FLUTICASONE PROP 0.05% 16 GM NASAL SPRAY NS SCH ×2 (10:34→21:38)
[2017-01-29] MEDS: ESCITALOPRAM OXALATE 10 MG TABLET (FP) PO SCH (10:34)
[2017-01-29] MEDS: NICOTINE 21 MG/24 HOURS TOPICAL PATCH TD SCH (10:34)
[2017-01-29] MEDS: LIDOCAINE 5% TOPICAL PATCH TP SCH (10:35)
--- NOTE | 2017-01-29 13:14 | PN ---
Psychiatric Progress Note Vital Signs: Vital Signs Period Temp Pulse Resp BP Sys/Yao Pulse Ox Last 24 Hr 97.9 F 71-77 18-18 102-118/72-74 Date of Session: 01/29/17 Chief Complaint:: "craiving" HPI: Patient is addressing opioid, cocaine, nicotine dependence comorbid subsnatnce induced mood disorder. Current Medications: Active Medications Generic Name Dose Route Start Last Admin Trade Name Freq PRN Reason Stop Dose Admin Acetaminophen 650 mg 01/18/17 22:26 Tylenol - PO Q4H PRN PAIN Al Hydroxide/Mg Hydroxide 30 ml 01/18/17 22:26 Mylanta Oral Suspension - PO Q6H PRN DYSPEPSIA Amlodipine Besylate 5 mg 01/19/17 10:00 01/29/17 10:33 Norvasc - PO 5 mg DAILY BUBBA Administration Atorvastatin Calcium 10 mg 01/19/17 22:00 01/28/17 21:49 Lipitor - PO 10 mg HS BUBBA Administration Baclofen 10 mg 01/18/17 22:28 Lioresal - PO TID PRN BACK PAIN Cephalexin HCl 500 mg 01/19/17 12:00 01/29/17 13:00 Keflex - PO 500 mg Q6HPO BUBBA Administration Diphenhydramine HCl 50 mg 01/22/17 12:30 01/28/17 21:49 Benadryl - PO 50 mg HS PRN Administration INSOMNIA Escitalopram Oxalate 10 mg 01/19/17 11:19 01/29/17 10:34 Lexapro - PO Not Given DAILY BUBBA Eucalyptus/Menthol/Phenol/Sorbitol 1 each 01/18/17 22:26 Cepastat Lozenge - MM Q4H PRN SORE THROAT Fluticasone Propionate 1 spray 01/19/17 12:00 01/29/17 10:34 Flonase - NS Not Given BID BUBBA Guaifenesin 10 ml 01/18/17 22:26 Robitussin Dm - PO Q6H PRN COUGH Lidocaine 1 patch 01/22/17 12:47 01/29/17 10:35 Lidoderm Patch - TP Not Given DAILY BUBBA Lisinopril 20 mg 01/19/17 10:00 01/29/17 10:33 Prinivil PO 20 mg DAILY BUBBA Administration Loperamide HCl 4 mg 01/18/17 22:26 Imodium - PO Q6H PRN DIARRHEA Magnesium Citrate 300 ml 01/18/17 22:26 Citroma - PO Q48H PRN CONSTIPATION Magnesium Hydroxide 30 ml 01/18/17 22:26 Milk Of Magnesia - PO DAILY PRN CONSTIPATION Metformin HCl 500 mg 01/19/17 07:00 01/29/17 06:42 Glucophage - PO 500 mg BID@0700,1630 BUBBA Administration Miscellaneous 1 each 01/22/17 22:00 01/28/17 21:49 Lidoderm Patch Removal MC 1 each DAILY@2200 BUBBA Administration Naltrexone HCl 50 mg 01/30/17 10:00 Revia - PO DAILY BUBBA Naproxen 500 mg 01/19/17 10:30 01/29/17 10:33 Naprosyn - PO 500 mg BID BUBBA Administration Nicotine 21 mg 01/19/17 10:00 01/29/17 10:34 Nicoderm Patch - TD Not Given DAILY BUBBA Nicotine Polacrilex 4 mg 01/18/17 22:26 Nicorette Gum - BUC Q2H PRN NICOTINE REPLACEMENT RX Pantoprazole Sodium 40 mg 01/19/17 10:30 01/29/17 10:33 Protonix - PO 40 mg DAILY BUBBA Administration Multivit/Folic Acid/Iron 1 tab 01/19/17 10:00 01/29/17 10:33 Vitamins (Sjr) - PO 1 tab DAILY BUBBA Administration Pseudoephedrine/Triprolidine 1 combo 01/18/17 22:26 Actifed - PO TID PRN NASAL CONGESTION Sodium Chloride 2 spray 01/19/17 06:00 01/29/17 13:00 [place] Nasal [place] - NS Not Given TID BUBBA Thiamine HCl 100 mg 01/19/17 22:00 01/28/17 21:50 Vitamin B1 - PO 100 mg HS BUBBA Administration Medication(s) Change(s): add Naltrexone 50 mg po daily. Current Side Effect: No Lab tests ordered: No Lab tests reviewed: Yes Provider note:: Patient was seen today, he reports he wants to start medications which will help him with his craving, he reports he is anxious when thinks about his discharge, he is at high risk for relapse evidence by many attempts at recovery, he is willing to start Naltrexone, discussed indications and benefits discussed, he agreed to start. Total face to face time:: 25 Mental Status Exam - Mental Status Exam Alert and Oriented to: Time, Place, Person Cognitive Function: Good Patient Appearance: Well Groomed Mood: Anxious Affect: Mood Congruent Patient Behavior: Appropriate, Cooperative Speech Pattern: Clear, Appropriate Voice Loudness: Normal Thought Process: Intact, Goal Oriented Thought Disorder: Not Present Hallucinations: Denies Suicidal Ideation: Denies Homicidal Ideation: Denies Insight/Judgement: Fair Sleep: Fair Appetite: Fair Muscle strength/Tone: Normal Gait/Station: Normal Psychiatric Treatment Plan - Problem List (1) Nicotine dependence Current Visit: Yes Qualifiers: Nicotine product type: cigarettes Substance use status: in withdrawal Qualified Code(s): F17.213 - Nicotine dependence, cigarettes, with withdrawal; F17.213 - Nicotine dependence, cigarettes, with withdrawal (2) Cocaine dependence Current Visit: No (3) Opioid dependence Current Visit: No Comment: DEPENDENCE (4) Substance induced mood disorder Current Visit: Yes
[2017-01-29] MEDS: THIAMINE HCL 100 MG TABLET (FP) PO SCH (21:37)
[2017-01-29] MEDS: ATORVASTATIN CA 10 MG TABLET (FP) PO SCH (21:37)
[2017-01-29] MEDS: LIDOCAINE PATCH REMOVAL MC SCH (21:38)
[2017-01-29] MEDS: diphenhydrAMINE HCL 50 MG CAPSULE PO PRN (21:38)
[2017-01-30] MEDS: metFORMIN HCL 500 MG TABLET (FP) PO SCH ×2 (06:31→16:43)
[2017-01-30] MEDS: SODIUM CHLORIDE NASAL SPRAY 44 ML BOTTLE NS SCH ×3 (06:32→21:43)
[2017-01-30] MEDS: NAPROXEN 500 MG TABLET (FP) PO SCH ×2 (09:16→21:43)
[2017-01-30] MEDS: PRENATAL VITAMINS W/ FOLIC ACID TABLET (FP) PO SCH (09:16)
[2017-01-30] MEDS: NALTREXONE HCL 50 MG TABLET PO SCH (09:16)
[2017-01-30] MEDS: amLODIPine BESYLATE 5 MG TABLET (FP) PO SCH (09:16)
[2017-01-30] MEDS: FLUTICASONE PROP 0.05% 16 GM NASAL SPRAY NS SCH ×2 (09:16→21:42)
[2017-01-30] MEDS: ESCITALOPRAM OXALATE 10 MG TABLET (FP) PO SCH (09:16)
[2017-01-30] MEDS: PANTOPRAZOLE 40 MG TABLET (FP) PO SCH (09:17)
[2017-01-30] MEDS: NICOTINE 21 MG/24 HOURS TOPICAL PATCH TD SCH (09:17)
[2017-01-30] MEDS: LIDOCAINE 5% TOPICAL PATCH TP SCH (09:17)
[2017-01-30] MEDS: LISINOPRIL 20 MG TABLET (FP) PO SCH (09:17)
[2017-01-30] MEDS: diphenhydrAMINE HCL 50 MG CAPSULE PO PRN (21:43)
[2017-01-30] MEDS: THIAMINE HCL 100 MG TABLET (FP) PO SCH (21:43)
[2017-01-30] MEDS: LIDOCAINE PATCH REMOVAL MC SCH (21:43)
[2017-01-30] MEDS: ATORVASTATIN CA 10 MG TABLET (FP) PO SCH (21:43)
[2017-01-31] MEDS: SODIUM CHLORIDE NASAL SPRAY 44 ML BOTTLE NS SCH (06:15)
[2017-01-31] MEDS: metFORMIN HCL 500 MG TABLET (FP) PO SCH (06:15)
[2017-01-31 07:05] VITALS: BP 117/82; PULSE 79; TEMP 97.9
[2017-01-31] MEDS: LISINOPRIL 20 MG TABLET (FP) PO SCH (09:27)
[2017-01-31] MEDS: LIDOCAINE 5% TOPICAL PATCH TP SCH (09:27)
[2017-01-31] MEDS: NAPROXEN 500 MG TABLET (FP) PO SCH (09:27)
[2017-01-31] MEDS: amLODIPine BESYLATE 5 MG TABLET (FP) PO SCH (09:27)
[2017-01-31] MEDS: ESCITALOPRAM OXALATE 10 MG TABLET (FP) PO SCH (09:27)
[2017-01-31] MEDS: NALTREXONE HCL 50 MG TABLET PO SCH (09:27)
[2017-01-31] MEDS: PANTOPRAZOLE 40 MG TABLET (FP) PO SCH (09:27)
[2017-01-31] MEDS: NICOTINE 21 MG/24 HOURS TOPICAL PATCH TD SCH (09:27)
[2017-01-31] MEDS: PRENATAL VITAMINS W/ FOLIC ACID TABLET (FP) PO SCH (09:27)
[2017-01-31] MEDS: FLUTICASONE PROP 0.05% 16 GM NASAL SPRAY NS SCH (10:00)
--- NOTE | 2017-01-31 10:23 | PN ---
Psychiatric Progress Note Vital Signs: Vital Signs Period Temp Pulse Resp BP Sys/Yao Pulse Ox Last 24 Hr 97.9 F 79 18-18 117/82 Date of Session: 01/31/17 Chief Complaint:: discharge visit HPI: Patient is addressing opioid, cocaine, nicotine dependence comorbid substance induced mood disorder. ROS: WNL Current Medications: Active Medications Generic Name Dose Route Start Last Admin Trade Name Freq PRN Reason Stop Dose Admin Acetaminophen 650 mg 01/18/17 22:26 Tylenol - PO Q4H PRN PAIN Al Hydroxide/Mg Hydroxide 30 ml 01/18/17 22:26 Mylanta Oral Suspension - PO Q6H PRN DYSPEPSIA Amlodipine Besylate 5 mg 01/19/17 10:00 01/31/17 09:27 Norvasc - PO 5 mg DAILY BUBBA Administration Atorvastatin Calcium 10 mg 01/19/17 22:00 01/30/17 21:43 Lipitor - PO 10 mg HS BUBBA Administration Baclofen 10 mg 01/18/17 22:28 Lioresal - PO TID PRN BACK PAIN Diphenhydramine HCl 50 mg 01/22/17 12:30 01/30/17 21:43 Benadryl - PO 50 mg HS PRN Administration INSOMNIA Escitalopram Oxalate 10 mg 01/19/17 11:19 01/31/17 09:27 Lexapro - PO 10 mg DAILY BUBBA Administration Eucalyptus/Menthol/Phenol/Sorbitol 1 each 01/18/17 22:26 Cepastat Lozenge - MM Q4H PRN SORE THROAT Fluticasone Propionate 1 spray 01/19/17 12:00 01/30/17 21:42 Flonase - NS Not Given BID [facility] Guaifenesin 10 ml 01/18/17 22:26 Robitussin Dm - PO Q6H PRN COUGH Lidocaine 1 patch 01/22/17 12:47 01/31/17 09:27 Lidoderm Patch - TP Not Given DAILY [facility] Lisinopril 20 mg 01/19/17 10:00 01/31/17 09:27 Prinivil PO 20 mg DAILY BUBBA Administration Loperamide HCl 4 mg 01/18/17 22:26 Imodium - PO Q6H PRN DIARRHEA Magnesium Citrate 300 ml 01/18/17 22:26 Citroma - PO Q48H PRN CONSTIPATION Magnesium Hydroxide 30 ml 01/18/17 22:26 Milk Of Magnesia - PO DAILY PRN CONSTIPATION Metformin HCl 500 mg 01/19/17 07:00 01/31/17 06:15 Glucophage - PO 500 mg BID@0700,1630 BUBBA Administration Miscellaneous 1 each 01/22/17 22:00 01/30/17 21:43 Lidoderm Patch Removal MC Not Given DAILY@2200 BUBBA Naltrexone HCl 50 mg 01/30/17 10:00 01/31/17 09:27 Revia - PO 50 mg DAILY BUBBA Administration Naproxen 500 mg 01/19/17 10:30 01/31/17 09:27 Naprosyn - PO 500 mg BID BUBBA Administration Nicotine 21 mg 01/19/17 10:00 01/31/17 09:27 Nicoderm Patch - TD Not Given DAILY BUBBA Nicotine Polacrilex 4 mg 01/18/17 22:26 Nicorette Gum - BUC Q2H PRN NICOTINE REPLACEMENT RX Pantoprazole Sodium 40 mg 01/19/17 10:30 01/31/17 09:27 Protonix - PO 40 mg DAILY BUBBA Administration Multivit/Folic Acid/Iron 1 tab 01/19/17 10:00 01/31/17 09:27 Vitamins (Sjr) - PO 1 tab DAILY BUBBA Administration Pseudoephedrine/Triprolidine 1 combo 01/18/17 22:26 Actifed - PO TID PRN NASAL CONGESTION Sodium Chloride 2 spray 01/19/17 06:00 01/31/17 06:15 [place] Nasal [place] - NS Not Given TID BUBBA Thiamine HCl 100 mg 01/19/17 22:00 01/30/17 21:43 Vitamin B1 - PO 100 mg HS BUBBA Administration Current Side Effect: No Lab tests ordered: No Lab tests reviewed: Yes Provider note:: Patient has completed today his treatment and me his goals, will continue to address hi issues at [facility]. PAtient gained insights into his addiction and motivated to continue maintain abstinence,medications well tolerated, scripts for Lexapro and Naltrexone provided, patient is stable for discharge. Total face to face time:: 35 Mental Status Exam - Mental Status Exam Alert and Oriented to: Time, Place, Person Cognitive Function: Good Patient Appearance: Well Groomed Mood: Hopeful Affect: Appropriate, Mood Congruent Patient Behavior: Appropriate, Cooperative Speech Pattern: Clear, Appropriate Voice Loudness: Normal Thought Process: Intact, Goal Oriented Thought Disorder: Not Present Hallucinations: Denies Suicidal Ideation: Denies Homicidal Ideation: Denies Insight/Judgement: Fair Sleep: Fair Appetite: Fair Muscle strength/Tone: Normal Gait/Station: Normal Psychiatric Treatment Plan - Problem List (1) Nicotine dependence Current Visit: Yes Qualifiers: Nicotine product type: cigarettes Substance use status: in withdrawal Qualified Code(s): F17.213 - Nicotine dependence, cigarettes, with withdrawal; F17.213 - Nicotine dependence, cigarettes, with withdrawal (2) Cocaine dependence Current Visit: No (3) Opioid dependence Current Visit: No Comment: DEPENDENCE (4) Substance induced mood disorder Current Visit: Yes
== END 2017-01-31 11:00 | disposition home or self-care (01) | DRG 772 ==
LOC: YASAS 15:53 → Y5N 22:28
PROVIDERS: ADMIT Psychiatry & Neurology Psychiatry; ATTEND Psychiatry & Neurology Psychiatry
PROC: HZ42ZZZ Group Counseling for Substance Abuse Treatment, Cognitive-Behavioral (ICD-10-PCS; principal; 2017-01-18)
DX: F11.20 Opioid dependence, uncomplicated (principal); F14.20 Cocaine dependence, uncomplicated; F17.213 Nicotine dependence, cigarettes, with withdrawal; F19.24 Other psychoactive substance dependence with psychoactive substance-induced mood disorder; E11.9 Type 2 diabetes mellitus without complications; E78.5 Hyperlipidemia, unspecified; I10 Essential (primary) hypertension; L03.113 Cellulitis of right upper limb; M54.5 Low back pain; G89.29 Other chronic pain; S62.309D Unspecified fracture of unspecified metacarpal bone, subsequent encounter for fracture with routine healing; X58.XXXD Exposure to other specified factors, subsequent encounter; Z86.73 Personal history of transient ischemic attack (TIA), and cerebral infarction without residual deficits; Z79.84 Long term (current) use of oral hypoglycemic drugs; Z91.018 Allergy to other foods; Z91.011 Allergy to milk products
CPT/HCPCS: 36415; 73130-TC-RT; 80053; 81003; 81015; 83036; 85027; 86593; 87389; 90688; 93005; 93010; G0008

== ENCOUNTER 2018-08-09 19:21 | Inpatient (IN) | payer BC, OTHER ==
[2018-08-09 23:30] VITALS: BMI 25.4
--- NOTE | 2018-08-09 23:47 | HP ---
COWS - Scale Resting Pulse: 0= MD 80 or Below Sweatin= Chills/Flushing Restless Observation: 5= Unable to Sit Still Pupil Size: 0= Normal to Room Light Bone or Joint Aches: 4=Acute Joint/Muscle Pain Runny Nose/ Eye Tearin= Runny Nose/Eyes GI Upset > 30mins: 2= Nausea/Diarrhea Tremor Observation: 1= Tremor Jackson, Not Seen Yawning Observation: 2= >3x During Session Anxiety or Irritability: 2=Irritable/Anxious Goose Flesh Skin: 3=Piloerection COWS Score: 22 CIWA Score Nausea/Vomitin-Mild Nausea/No Vomiting Muscle Tremors: 1-None Visible, but Jackson Anxiety: 4-Mod. Anxious/Guarded Agitation: 4-Moderately Restless Paroxysmal Sweats: No Perspiration Orientation: 0-Oriented Tacttile Disturbances: 0-None Auditory Disturbances: 0-None Visual Disturbances: 0-None Headache: 2-Mild CIWA-Ar Total Score: 12 - Admission Criteria [facility] Guidelines: Admission for Medically Managed Detox: Requires at least one of the followin. CIWA greater than 12 2. Seizures within the past 24 hours 3. Delirium tremens within the past 24 hours 4. Hallucinations within the past 24 hours 5. Acute intervention needed for co occurring medical disorder 6. Acute intervention needed for co occurring psychiatric disorder 7. Severe withdrawal that cannot be handled at a lower level of care (continued vomiting, continued diarrhea, abnormal vital signs) requiring intravenous medication and/or fluids 8. Admission [facility] Chief Complaint: C/O WITHDRAWAL SX'S. MANDATED TO DETOX/REHAB Allergies/Adverse Reactions: Allergies Allergy/AdvReac Type Severity Reaction Status Date / Time lactose Allergy Severe Verified 08/09/18 23:25 pork derived (porcine) Allergy Severe Rash Verified 08/09/18 23:25 No Known Drug Allergies Allergy Verified 08/09/18 23:25 History of Present Illness: 58 Y.O. MALE WITH OPIOID AND ALCOHOLISM HERE FOR DETOX/REHAB. CLIENT IS MANDATED BY [facility]. PRESENTS WITH C/O WITHDRAWAL SX'S. COWS 22/CIWA 12. REPORTS LAST USE 1 DAY AGO. WAS DETAINED LEGALLY FOR THE PAST 24 HOURS FOR SHOP LIFTING. REPORTS LONGEST CLEAN TIME 8 YEARS SELF MAINTAINED. DENIES HX/O SEIZURE, SI/HI, AVH. DOES REPORTS DRUG OVERDOSE X 1. DOMICILED, UNEMPLOYED- SSI, COURT MANDATE Exam Limitations: No Limitations - Ebola screening Have you traveled outside of the country in the last 21 days: No (N) Have you had contact with anyone from an Ebola affected area: No Do you have a fever: No - Review of Systems Constitutional: Chills, Malaise, Night Sweats, Unintentional Wgt. Loss EENT: reports: Tearing (WATERY EYES), Nose Congestion (RINORRHEA), Dental Problems (MISSING TEETH) Respiratory: reports: No Symptoms reported Cardiac: reports: No Symptoms Reported GI: reports: Nausea : reports: No Symptoms Reported Musculoskeletal: reports: Back Pain, Joint Pain Integumentary: reports: No Symptoms Reported Neuro: reports: Tremors Endocrine: reports: Other (HX/O DM) Hematology: reports: No Symptoms Reported Psychiatric: reports: Orientated x3, Anxious Other Systems: Reviewed and Negative Patient History - Patient Medical History Hx Anemia: No Hx Asthma: No Hx Chronic Obstructive Pulmonary Disease (COPD): No Hx Cancer: No Hx Cardiac Disorders: No Hx Congestive Heart Failure: No Hx Hypertension: Yes Hx Hypercholesterolemia: Yes Hx Pacemaker: No HX Cerebrovascular Accident: Yes (OLD CVA 2015 ) Hx Seizures: No Hx Dementia: No Hx Diabetes: Yes (DM type 2) Hx Gastrointestinal Disorders: No Hx Liver Disease: No Hx Genitourinary Disorders: No Hx Sexually Transmitted Disorders: No Hx Renal Disease (ESRD): No Hx Thyroid Disease: No Hx Human Immunodeficiency Virus (HIV): No (LAST 2017 NEGATIVE) Hx Hepatitis C: No Hx Depression: No Hx Suicide Attempt: No Hx Bipolar Disorder: No Hx Schizophrenia: No - Patient Surgical History Past Surgical History: No - PPD History Previous Implant?: Yes Documented Results: Negative w/o proof Implanted On Prior [facility] Admission?: No PPD to be Administered?: Yes - Smoking Cessation Smoking history: Current every day smoker Have you smoked in the past 12 months: Yes Aproximately how many cigarettes per day: 20 Cigars Per Day: 0 Hx Chewing Tobacco Use: No Initiated information on smoking cessation: Yes 'Breaking Loose' booklet given: 08/09/18 - Substance & Tx. History Hx Alcohol Use: Yes Hx Substance Use: Yes Substance Use Type: Alcohol, Cocaine, Heroin, Marijuana, Tranquilizers (BENZO + CLIENT DENIES USE STATES CUT WITH HERION) Hx Substance Use Treatment: Yes ([facility]) - Substances abused Alcohol Substance route: Oral Frequency: Daily Amount used: liquor- 1 pint Age of first use: 20 Date of last use: 08/08/18 Heroin Substance route: Inhalation Frequency: Daily Amount used: 10 bags Age of first use: 23 Date of last use: 08/08/18 Marijuana/Hashish Substance route: Smoking Frequency: No use in 30 days Amount used: 1 BAG Age of first use: 15 Date of last use: 07/07/18 Family Disease History - Family Disease History Family Disease History: Other: Father (DSA,ALCOHOL,), Mother (DSA, ALCOHOL,) Admission Physical Exam S - Vital Signs Vital Signs: Vital Signs - 24 hr 08/09/18 23:26 Temperature 97.3 F L Pulse Rate 71 Respiratory 20 Rate Blood Pressure 143/83 - Physical General Appearance: Yes: Appropriately Dressed, Disheveled, Anxious, Other ( MALODUROUS) HEENTM: Yes: EOMI, Normocephalic, Normal Voice, DONIS (DIALTED PUPILS/ WATERY EYES), Pharynx Normal, Nasal Congestion, Rhinorrhea, Other (POOR DENTITION/ MISSING TEETRH) Respiratory: Yes: Chest Non-Tender, Lungs Clear, Normal Breath Sounds, No Respiratory Distress, No Accessory Muscle Use Neck: Yes: No masses,lesions,Nodules, Supple, Trachea in good position Breast: Yes: Breast Exam Deferred Cardiology: Yes: Regular Rhythm, Regular Rate, S1, S2 Abdominal: Yes: Normal Bowel Sounds, Non Tender, Soft Genitourinary: Yes: Within Normal Limits (NO C/O) Back: Yes: Normal Inspection Musculoskeletal: Yes: full range of Motion, Gait Steady Extremities: Yes: Normal Capillary Refill, Normal Range of Motion, Non-Tender Neurological: Yes: Fully Oriented, Alert, Motor Strength 5/5, Depressed Affect Integumentary: Yes: Cold (PILORECTION) Lymphatic: Yes: Within Normal Limits - Diagnostic (1) Alcohol dependence with uncomplicated withdrawal Current Visit: Yes Status: Acute (2) Cocaine dependence Current Visit: Yes Status: Acute (3) Nicotine dependence Current Visit: Yes Status: Chronic Qualifiers: Nicotine product type: cigarettes Substance use status: in withdrawal Qualified Code(s): F17.213 - Nicotine dependence, cigarettes, with withdrawal (4) Opioid dependence with withdrawal Current Visit: Yes Status: Acute (5) Substance induced mood disorder Current Visit: Yes Status: Suspected (6) Weight loss Current Visit: Yes Status: Chronic (7) Chronic back pain Current Visit: Yes Status: Chronic Qualifiers: Back pain location: low back pain Back pain laterality: bilateral Sciatica presence: without sciatica Qualified Code(s): M54.5 - Low back pain; G89.29 - Other chronic pain (8) DM2 (diabetes mellitus, type 2) Current Visit: Yes Status: Chronic Qualifiers: Diabetes mellitus rn long term care insulin use: without rn long term care use Diabetes mellitus complication status: without complication Qualified Code(s): E11.9 - Type 2 diabetes mellitus without complications (9) Essential (primary) hypertension Current Visit: Yes Status: Chronic (10) Hyperlipidemia Current Visit: Yes Status: Chronic Qualifiers: Hyperlipidemia type: pure hypercholesterolemia Qualified Code(s): E78.00 - Pure hypercholesterolemia, unspecified Cleared for Admission [facility] - Detox or Rehab [facility] Level of Care: Medically Managed Detox Regimen/Protocol: Librium, Methadone Claeared for Rehab Admission: No Inpatient Rehab Admission - Rehab Decision to Admit Inpatient rehab admission?: No
[2018-08-09] MEDS ORDERED: BISMUTH SUBSALICYLATE 524 MG/30 ML UD PO PRN (23:54)
[2018-08-09] MEDS ORDERED: chlordiazePOXIDE HCL 25 MG CAPSULE PO ONE (23:54)
[2018-08-09] MEDS ORDERED: ONDANSETRON *ODT* 4 MG TABLET SL PRN (23:54)
[2018-08-09] MEDS ORDERED: cloNIDine HCL 0.1 MG TABLET PO PRN (23:54)
[2018-08-09] MEDS ORDERED: MAG HYDROX/AL HYDROX/SIMETH 30 ML UNIT-DOSE CUP PO PRN (23:54)
[2018-08-09] MEDS ORDERED: DICYCLOMINE HCL 10 MG CAPSULE PO PRN (23:54)
[2018-08-09] MEDS ORDERED: hydrOXYzine PAMOATE 25 MG CAPSULE (FP) PO PRN (23:54)
[2018-08-09] MEDS ORDERED: P-EPHED 60MG/TRIPROLIDI 2.5MG TABLET PO PRN (23:54)
[2018-08-09] MEDS ORDERED: ACETAMINOPHEN 325 MG TABLET (FP) PO PRN ×2 (23:54)
[2018-08-09] MEDS ORDERED: NICOTINE POLACRILEX 2 MG GUM BUC PRN (23:54)
[2018-08-09] MEDS ORDERED: MAGNESIUM CITRATE 300 ML BOTTLE PO PRN (23:54)
[2018-08-09] MEDS ORDERED: MENTHOL/PHENOL 1 EACH UD MM PRN (23:54)
[2018-08-09] MEDS ORDERED: chlordiazePOXIDE HCL 25 MG CAPSULE PO PRN (23:54)
[2018-08-09] MEDS ORDERED: MAGNESIUM HYDROX 2400MG/30ML ORAL SUSPENSION 30 ML CUP PO PRN (23:54)
[2018-08-09] MEDS ORDERED: NALOXONE HCL 0.4 MG/ML VIAL IVPUSH PRN (23:54)
[2018-08-09] MEDS ORDERED: guaiFENesin 200 MG/10 ML 10 ML UNIT-DOSE CUPS PO PRN (23:54)
[2018-08-09] MEDS ORDERED: IBUPROFEN 400 MG TABLET (FP) PO PRN ×2 (23:54)
[2018-08-09] MEDS ORDERED: METHOCARBAMOL 500 MG TABLET PO PRN (23:54)
[2018-08-10] MEDS ORDERED: METHADONE HCL 10 MG TABLET (FOR DETOX USE ONLY) PO ONE ×2 (00:30→10:00)
[2018-08-10] MEDS: chlordiazePOXIDE HCL 25 MG CAPSULE PO SCH ×5 (01:42→22:13)
--- NOTE | 2018-08-10 08:26 | EKG ---
Test Reason : Blood Pressure : / mmHG Vent. Rate : 071 BPM Atrial Rate : 071 BPM P-R Int : 124 ms QRS Dur : 090 ms QT Int : 416 ms P-R-T Axes : 069 050 058 degrees QTc Int : 452 ms NORMAL SINUS RHYTHM VOLTAGE CRITERIA FOR LEFT VENTRICULAR HYPERTROPHY EARLY REPOLARIZATION ABNORMAL ECG WHEN COMPARED WITH ECG OF 19-JAN-2017 07:06, NO SIGNIFICANT CHANGE WAS FOUND Confirmed by EBONY GROSS, SHADIA ([id number]) on 08/10/2018 8:25:53 AM Referred By: WILY Confirmed By:SHADIA BECK MD
[2018-08-10] MEDS: PRENATAL VITAMINS W/ FOLIC ACID TABLET (FP) PO SCH (10:13)
[2018-08-10] MEDS: NICOTINE 21 MG/24 HOURS TOPICAL PATCH TD SCH (10:13)
[2018-08-10] MEDS: amLODIPine BESYLATE 5 MG TABLET (FP) PO SCH (10:13)
[2018-08-10] MEDS: LISINOPRIL 10 MG TABLET (FP) PO SCH (10:13)
[2018-08-10 10:29] LABS: HEMATOCRIT 38.4 % (35.4-49); HEMOGLOBIN 12.1 GM/dL (11.7-16.9); MCH 22.9 pg (25.7-33.7); MCHC 31.6 g/dl (32.0-35.9); MEAN CELL VOLUME 72.5 fl (80-96); MEAN PLT VOLUME 8.7 fl (7.5-11.1); PLATELET COUNT 286 K/MM3 (134-434); RBC 5.29 M/mm3 (4.00-5.60); RDW 15.8 % (11.9-15.9); WHITE BLOOD COUNT 4.5 K/mm3 (4.0-10.0)
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
[2018-08-10 11:59] LABS: ALK PHOS 89 U/L (45-117); ANION GAP 7 MMOL/L (8-16); BILIRUBIN,TOTAL 0.3 mg/dL (0.2-1); BLOOD UREA NITROGEN 21 mg/dL (7-18); CALCIUM 8.7 mg/dL (8.5-10.1); CHLORIDE 106 mmol/L (98-107); CO2 28 mmol/L (21-32); CREATININE 1.1 mg/dL (0.55-1.3); GLUCOSE,RANDOM 127 mg/dL (74-106); POTASSIUM 4.2 mmol/L (3.5-5.1); SGOT/AST 17 U/L (15-37); SGPT/ALT 15 U/L (13-61); SODIUM 141 mmol/L (136-145); TOT PROT 6.3 g/dl (6.4-8.2)
--- NOTE | 2018-08-10 12:37 | PN ---
S CIWA - CIWA Score Nausea/Vomitin-No Nausea/No Vomiting Muscle Tremors: 2 Anxiety: 4-Mod. Anxious/Guarded Agitation: 3 Paroxysmal Sweats: No Perspiration Orientation: 0-Oriented Tacttile Disturbances: 0-None Auditory Disturbances: 0-None Visual Disturbances: 0-None Headache: 0-None Present CIWA-Ar Total Score: 9 BHS COWS - Scale Resting Pulse: 1= [place] 81-100 Sweatin= Chills/Flushing Restless Observation: 3= Extraneous Movement Pupil Size: 0= Normal to Room Light Bone or Joint Aches: 1= Mild Discomfort Runny Nose/ Eye Tearin= None GI Upset > 30mins: 0= None Tremor Observation of Outstretched Hands: 1= Tremor [place], Not Seen Yawning Observation: 1= 1-2x During Session Anxiety or Irritability: 2=Irritable/Anxious Goose Flesh Skin: 0=Smooth Skin COWS Score: 10 S Progress Note (SOAP) Subjective: PT C/O ANXIETY, IRRITABILITY,INTERMITTENT SLEEP(ROOMMATE SNORING). Objective: 08/10/18 12:36 Vital Signs 08/10/18 08/10/18 08/10/18 06:13 06:28 09:42 Temperature 97.8 F 96.9 F L Pulse Rate 69 81 Respiratory 18 18 16 Rate Blood Pressure 119/58 L 133/83 Laboratory Tests 08/10/18 08/10/18 08/10/18 05:49 07:45 08:00 WBC 4.5 RBC 5.29 Hgb 12.1 Hct 38.4 MCV 72.5 L MCH 22.9 L MCHC 31.6 L RDW 15.8 Plt Count 286 MPV 8.7 Sodium 141 Potassium 4.2 Chloride 106 Carbon Dioxide 28 Anion Gap 7 L BUN 21 H Creatinine 1.1 Creat Clearance w eGFR 69.24 POC Glucometer 147 Random Glucose 127 H Calcium 8.7 Total Bilirubin 0.3 AST 17 ALT 15 Alkaline Phosphatase 89 Total Protein 6.3 L Albumin 3.0 L LABS NOTED Assessment: 08/10/18 12:36 WITHDRAWAL SX Plan: CONTINUE DETOX INCREASE PO FLUIDS
[2018-08-10 17:21] LABS: URINE APPEARANCE TURBID; URINE BILIRUBIN NEGATIVE (NEGATIVE); URINE COLOR YELLOW; URINE GLUCOSE (UA) NEGATIVE (NEGATIVE); URINE KETONE TRACE (NEGATIVE); URINE LEUK ESTERASE NEGATIVE (NEGATIVE); URINE NITRITE NEGATIVE (NEGATIVE); URINE PROTEIN NEGATIVE (NEGATIVE)
[2018-08-10] MEDS: QUEtiapine FUMARATE 50 MG TABLET PO SCH (22:13)
[2018-08-10] MEDS: ATORVASTATIN CA 10 MG TABLET (FP) PO SCH (22:13)
[2018-08-10] MEDS: THIAMINE HCL 100 MG TABLET (FP) PO SCH (23:18)
[2018-08-11] MEDS: chlordiazePOXIDE HCL 25 MG CAPSULE PO SCH ×3 (05:53→17:23)
[2018-08-11] MEDS ORDERED: METHADONE HCL 10 MG TABLET (FOR DETOX USE ONLY) PO ONE (10:00)
[2018-08-11] MEDS: LISINOPRIL 10 MG TABLET (FP) PO SCH (10:29)
[2018-08-11] MEDS: amLODIPine BESYLATE 5 MG TABLET (FP) PO SCH (10:29)
[2018-08-11] MEDS: PRENATAL VITAMINS W/ FOLIC ACID TABLET (FP) PO SCH (10:29)
[2018-08-11] MEDS: NICOTINE 21 MG/24 HOURS TOPICAL PATCH TD SCH (10:29)
--- NOTE | 2018-08-11 14:55 | PN ---
[facility] CI[facility] - CIWA Score Nausea/Vomitin-Mild Nausea/No Vomiting Muscle Tremors: 2 Anxiety: 1-Mildly Anxious Agitation: 1-Slight > Activity Paroxysmal Sweats: 2 Orientation: 0-Oriented Tacttile Disturbances: 0-None Auditory Disturbances: 0-None Visual Disturbances: 0-None Headache: 1-Very Mild CIWA-Ar Total Score: 8 BHS COWS - Scale Resting Pulse: 1= [place] 81-100 Sweatin= Chills/Flushing Restless Observation: 0= Sits Still Pupil Size: 0= Normal to Room Light Bone or Joint Aches: 1= Mild Discomfort Runny Nose/ Eye Tearin= Nasal Congestion GI Upset > 30mins: 1= Stomach Cramp Tremor Observation of Outstretched Hands: 1= Tremor Strong, Not Seen Yawning Observation: 1= 1-2x During Session Anxiety or Irritability: 1=Feels Anxious/Irritable Goose Flesh Skin: 0=Smooth Skin COWS Score: 8 [facility] Progress Note (SOAP) Subjective: feeling ok today washing clothing by hand prepare his clothing when discharge from detox Objective: 08/11/18 14:56 Vital Signs Temperature 97.4 F L 08/11/18 13:18 Pulse Rate 87 08/11/18 13:18 Respiratory Rate 18 08/11/18 13:18 Blood Pressure 139/87 08/11/18 13:18 O2 Sat by Pulse Oximetry (%) Laboratory Last Values WBC 4.5 K/mm3 (4.0-10.0) 08/10/18 08:00 RBC 5.29 M/mm3 (4.00-5.60) 08/10/18 08:00 Hgb 12.1 GM/dL (11.7-16.9) 08/10/18 08:00 Hct 38.4 % (35.4-49) 08/10/18 08:00 MCV 72.5 fl (80-96) L 08/10/18 08:00 MCH 22.9 pg (25.7-33.7) L 08/10/18 08:00 MCHC 31.6 g/dl (32.0-35.9) L 08/10/18 08:00 RDW 15.8 % (11.9-15.9) 08/10/18 08:00 Plt Count 286 K/MM3 (134-434) 08/10/18 08:00 MPV 8.7 fl (7.5-11.1) 08/10/18 08:00 Sodium 141 mmol/L (136-145) 08/10/18 07:45 Potassium 4.2 mmol/L (3.5-5.1) 08/10/18 07:45 Chloride 106 mmol/L (98-107) 08/10/18 07:45 Carbon Dioxide 28 mmol/L (21-32) 08/10/18 07:45 Anion Gap 7 MMOL/L (8-16) L 08/10/18 07:45 BUN 21 mg/dL (7-18) H 08/10/18 07:45 Creatinine 1.1 mg/dL (0.55-1.3) 08/10/18 07:45 Creat Clearance w eGFR 69.24 (>60) 08/10/18 07:45 POC Glucometer 104 UNITS (80-120) 08/11/18 05:52 Random Glucose 127 mg/dL (74-106) H 08/10/18 07:45 Calcium 8.7 mg/dL (8.5-10.1) 08/10/18 07:45 Total Bilirubin 0.3 mg/dL (0.2-1) 08/10/18 07:45 AST 17 U/L (15-37) 08/10/18 07:45 ALT 15 U/L (13-61) 08/10/18 07:45 Alkaline Phosphatase 89 U/L (45-117) 08/10/18 07:45 Total Protein 6.3 g/dl (6.4-8.2) L 08/10/18 07:45 Albumin 3.0 g/dl (3.4-5.0) L 08/10/18 07:45 Urine Color Yellow 08/10/18 12:21 Urine Appearance Turbid 08/10/18 12:21 Urine pH 5.0 (5.0-8.0) D 08/10/18 12:21 Ur Specific [place] 1.040 (1.010-1.035) H 08/10/18 12:21 Urine Protein Negative (NEGATIVE) 08/10/18 12:21 Urine Glucose (UA) Negative (NEGATIVE) 08/10/18 12:21 Urine Ketones Trace (NEGATIVE) H 08/10/18 12:21 Urine Blood Negative (NEGATIVE) 08/10/18 12:21 Urine Nitrite Negative (NEGATIVE) 08/10/18 12:21 Urine Bilirubin Negative (NEGATIVE) 08/10/18 12:21 Urine Urobilinogen 1.0 mg/dL (0.2-1.0) 08/10/18 12:21 Ur Leukocyte Esterase Negative (NEGATIVE) 08/10/18 12:21 RPR Titer Nonreactive (NONREACTIVE) 08/10/18 07:45 lab noted Assessment: 08/11/18 14:57 alcohol and opiate withdrawal sx Plan: continue detox
[2018-08-11] MEDS: SODIUM CHLORIDE NASAL SPRAY 44 ML BOTTLE NS SCH ×2 (21:11→22:09)
[2018-08-11] MEDS: ATORVASTATIN CA 10 MG TABLET (FP) PO SCH (22:03)
[2018-08-11] MEDS: QUEtiapine FUMARATE 50 MG TABLET PO SCH (22:03)
[2018-08-11] MEDS: chlordiazePOXIDE HCL 10 MG CAPSULE PO SCH (22:03)
[2018-08-11] MEDS: THIAMINE HCL 100 MG TABLET (FP) PO SCH (22:03)
[2018-08-11] MEDS: MELATONIN 5 MG TABLETS PO PRN (22:04)
[2018-08-11] MEDS ORDERED: chlordiazePOXIDE HCL 10 MG CAPSULE PO PRN (23:00)
[2018-08-12] MEDS: chlordiazePOXIDE HCL 10 MG CAPSULE PO SCH ×4 (05:27→22:00)
[2018-08-12] MEDS: SODIUM CHLORIDE NASAL SPRAY 44 ML BOTTLE NS SCH ×3 (05:54→21:54)
[2018-08-12] MEDS ORDERED: METHADONE HCL 10 MG TABLET (FOR DETOX USE ONLY) PO ONE (10:00)
[2018-08-12] MEDS: LISINOPRIL 10 MG TABLET (FP) PO SCH (10:05)
[2018-08-12] MEDS: PRENATAL VITAMINS W/ FOLIC ACID TABLET (FP) PO SCH (10:05)
[2018-08-12] MEDS: NICOTINE 21 MG/24 HOURS TOPICAL PATCH TD SCH (10:06)
[2018-08-12] MEDS: amLODIPine BESYLATE 5 MG TABLET (FP) PO SCH (10:06)
--- NOTE | 2018-08-12 12:10 | PN ---
[facility] CIWA - CIWA Score Nausea/Vomitin-Mild Nausea/No Vomiting Muscle Tremors: 1-None Visible, but [place] Anxiety: 1-Mildly Anxious Agitation: 1-Slight > Activity Paroxysmal Sweats: No Perspiration Orientation: 0-Oriented Tacttile Disturbances: 0-None Auditory Disturbances: 0-None Visual Disturbances: 0-None Headache: 0-None Present CIWA-Ar Total Score: 4 S COWS - Scale Resting Pulse: 1= [place] 81-100 Sweatin= Chills/Flushing Restless Observation: 0= Sits Still Pupil Size: 0= Normal to Room Light Bone or Joint Aches: 0= None Runny Nose/ Eye Tearin= None GI Upset > 30mins: 0= None Tremor Observation of Outstretched Hands: 1= Tremor [place], Not Seen Yawning Observation: 0= None Anxiety or Irritability: 1=Feels Anxious/Irritable Goose Flesh Skin: 0=Smooth Skin COWS Score: 4 [facility] Progress Note (SOAP) Subjective: feeling better wants to go to rehab for coping skills Objective: 08/12/18 12:09 Vital Signs Temperature 98.4 F 08/12/18 09:15 Pulse Rate 93 H 08/12/18 09:15 Respiratory Rate 18 08/12/18 09:15 Blood Pressure 149/88 08/12/18 09:15 O2 Sat by Pulse Oximetry (%) Laboratory Last Values WBC 4.5 K/mm3 (4.0-10.0) 08/10/18 08:00 RBC 5.29 M/mm3 (4.00-5.60) 08/10/18 08:00 Hgb 12.1 GM/dL (11.7-16.9) 08/10/18 08:00 Hct 38.4 % (35.4-49) 08/10/18 08:00 MCV 72.5 fl (80-96) L 08/10/18 08:00 MCH 22.9 pg (25.7-33.7) L 08/10/18 08:00 MCHC 31.6 g/dl (32.0-35.9) L 08/10/18 08:00 RDW 15.8 % (11.9-15.9) 08/10/18 08:00 Plt Count 286 K/MM3 (134-434) 08/10/18 08:00 MPV 8.7 fl (7.5-11.1) 08/10/18 08:00 Sodium 141 mmol/L (136-145) 08/10/18 07:45 Potassium 4.2 mmol/L (3.5-5.1) 08/10/18 07:45 Chloride 106 mmol/L (98-107) 08/10/18 07:45 Carbon Dioxide 28 mmol/L (21-32) 08/10/18 07:45 Anion Gap 7 MMOL/L (8-16) L 08/10/18 07:45 BUN 21 mg/dL (7-18) H 08/10/18 07:45 Creatinine 1.1 mg/dL (0.55-1.3) 08/10/18 07:45 Creat Clearance w eGFR 69.24 (>60) 08/10/18 07:45 POC Glucometer 110 UNITS (80-120) 08/12/18 05:27 Random Glucose 127 mg/dL (74-106) H 08/10/18 07:45 Calcium 8.7 mg/dL (8.5-10.1) 08/10/18 07:45 Total Bilirubin 0.3 mg/dL (0.2-1) 08/10/18 07:45 AST 17 U/L (15-37) 08/10/18 07:45 ALT 15 U/L (13-61) 08/10/18 07:45 Alkaline Phosphatase 89 U/L (45-117) 08/10/18 07:45 Total Protein 6.3 g/dl (6.4-8.2) L 08/10/18 07:45 Albumin 3.0 g/dl (3.4-5.0) L 08/10/18 07:45 Urine Color Yellow 08/10/18 12:21 Urine Appearance Turbid 08/10/18 12:21 Urine pH 5.0 (5.0-8.0) D 08/10/18 12:21 Ur Specific [place] 1.040 (1.010-1.035) H 08/10/18 12:21 Urine Protein Negative (NEGATIVE) 08/10/18 12:21 Urine Glucose (UA) Negative (NEGATIVE) 08/10/18 12:21 Urine Ketones Trace (NEGATIVE) H 08/10/18 12:21 Urine Blood Negative (NEGATIVE) 08/10/18 12:21 Urine Nitrite Negative (NEGATIVE) 08/10/18 12:21 Urine Bilirubin Negative (NEGATIVE) 08/10/18 12:21 Urine Urobilinogen 1.0 mg/dL (0.2-1.0) 08/10/18 12:21 Ur Leukocyte Esterase Negative (NEGATIVE) 08/10/18 12:21 RPR Titer Nonreactive (NONREACTIVE) 08/10/18 07:45 lab noted Assessment: 08/12/18 12:10 mild alcohol and opiate withdrawal sx Plan: continue detox
[2018-08-12] MEDS: QUEtiapine FUMARATE 50 MG TABLET PO SCH (21:52)
[2018-08-12] MEDS: THIAMINE HCL 100 MG TABLET (FP) PO SCH (21:52)
[2018-08-12] MEDS: ATORVASTATIN CA 10 MG TABLET (FP) PO SCH (21:54)
[2018-08-12] MEDS: MELATONIN 5 MG TABLETS PO PRN (23:05)
[2018-08-13] MEDS ORDERED: METHADONE HCL 5 MG TABLET (FOR DETOX USE ONLY) PO ONE (06:00)
[2018-08-13] MEDS: SODIUM CHLORIDE NASAL SPRAY 44 ML BOTTLE NS SCH ×2 (07:45→13:34)
--- NOTE | 2018-08-13 09:04 | DS ---
[facility] Detox Discharge Summary Admission Date: 08/09/18 Discharge Date: 08/13/18 - History Present History: Alcohol Dependence, Opioid Dependence Additional Comments: 58 years old male admitted on 08/09/18 for alcohol and opiate withdrawal stabilization completed detox regimen aftercare [facility] Pertinent Past History: bring in medication list and lab report to aftercare appointment - Physical Exam Results Vital Signs: Vital Signs Temperature 98.1 F 08/13/18 06:29 Pulse Rate 89 08/13/18 06:29 Respiratory Rate 18 08/13/18 06:29 Blood Pressure 117/72 08/13/18 06:29 O2 Sat by Pulse Oximetry (%) Pertinent Admission Physical Exam Findings: alcohol and opiate withdrawal sx Laboratory Last Values WBC 4.5 K/mm3 (4.0-10.0) 08/10/18 08:00 RBC 5.29 M/mm3 (4.00-5.60) 08/10/18 08:00 Hgb 12.1 GM/dL (11.7-16.9) 08/10/18 08:00 Hct 38.4 % (35.4-49) 08/10/18 08:00 MCV 72.5 fl (80-96) L 08/10/18 08:00 MCH 22.9 pg (25.7-33.7) L 08/10/18 08:00 MCHC 31.6 g/dl (32.0-35.9) L 08/10/18 08:00 RDW 15.8 % (11.9-15.9) 08/10/18 08:00 Plt Count 286 K/MM3 (134-434) 08/10/18 08:00 MPV 8.7 fl (7.5-11.1) 08/10/18 08:00 Sodium 141 mmol/L (136-145) 08/10/18 07:45 Potassium 4.2 mmol/L (3.5-5.1) 08/10/18 07:45 Chloride 106 mmol/L (98-107) 08/10/18 07:45 Carbon Dioxide 28 mmol/L (21-32) 08/10/18 07:45 Anion Gap 7 MMOL/L (8-16) L 08/10/18 07:45 BUN 21 mg/dL (7-18) H 08/10/18 07:45 Creatinine 1.1 mg/dL (0.55-1.3) 08/10/18 07:45 Creat Clearance w eGFR 69.24 (>60) 08/10/18 07:45 POC Glucometer 147 UNITS (80-120) 08/13/18 05:57 Random Glucose 127 mg/dL (74-106) H 08/10/18 07:45 Calcium 8.7 mg/dL (8.5-10.1) 08/10/18 07:45 Total Bilirubin 0.3 mg/dL (0.2-1) 08/10/18 07:45 AST 17 U/L (15-37) 08/10/18 07:45 ALT 15 U/L (13-61) 08/10/18 07:45 Alkaline Phosphatase 89 U/L (45-117) 08/10/18 07:45 Total Protein 6.3 g/dl (6.4-8.2) L 08/10/18 07:45 Albumin 3.0 g/dl (3.4-5.0) L 08/10/18 07:45 Urine Color Yellow 08/10/18 12:21 Urine Appearance Turbid 08/10/18 12:21 Urine pH 5.0 (5.0-8.0) D 08/10/18 12:21 Ur Specific [place] 1.040 (1.010-1.035) H 08/10/18 12:21 Urine Protein Negative (NEGATIVE) 08/10/18 12:21 Urine Glucose (UA) Negative (NEGATIVE) 08/10/18 12:21 Urine Ketones Trace (NEGATIVE) H 08/10/18 12:21 Urine Blood Negative (NEGATIVE) 08/10/18 12:21 Urine Nitrite Negative (NEGATIVE) 08/10/18 12:21 Urine Bilirubin Negative (NEGATIVE) 08/10/18 12:21 Urine Urobilinogen 1.0 mg/dL (0.2-1.0) 08/10/18 12:21 Ur Leukocyte Esterase Negative (NEGATIVE) 08/10/18 12:21 RPR Titer Nonreactive (NONREACTIVE) 08/10/18 07:45 lab noted - Treatment Hospital Course: Detox Protocol Followed, Detoxed Safely, Responded well, Discharged Condition Good, Rehab Referral Accepted Patient has Accepted a Rehab Referral to: [facility] - Medication Discharge Medications: Ambulatory Orders Escitalopram Oxalate [Lexapro -] 10 mg PO DAILY #30 tablet 01/31/17 Amlodipine Besylate [Norvasc -] 5 mg PO DAILY #30 tablet 08/12/18 Atorvastatin Ca [Lipitor] 10 mg PO HS #30 tablet 08/12/18 Lisinopril [Prinivil] 10 mg PO DAILY #30 tablet 08/12/18 Naloxone HCl [Narcan -] 0.4 mg IVPUSH PRN PRN #1 vial 08/12/18 Naltrexone HCl [Revia -] 50 mg PO DAILY #30 tablet 08/12/18 - Diagnosis (1) Alcohol dependence with uncomplicated withdrawal Status: Acute (2) Opioid dependence with withdrawal Status: Acute (3) DM2 (diabetes mellitus, type 2) Status: Chronic Qualifiers: Diabetes mellitus [facility] insulin use: without [facility] use Diabetes mellitus complication status: without complication Qualified Code(s): E11.9 - Type 2 diabetes mellitus without complications (4) Essential (primary) hypertension Status: Chronic (5) Nicotine dependence Status: Acute Qualifiers: Nicotine product type: cigarettes Substance use status: in withdrawal Qualified Code(s): F17.213 - Nicotine dependence, cigarettes, with withdrawal (6) Substance induced mood disorder Status: Suspected - AMA Did Patient Leave Against Medical Advice: No
[2018-08-13] MEDS: amLODIPine BESYLATE 5 MG TABLET (FP) PO SCH (09:51)
[2018-08-13] MEDS: PRENATAL VITAMINS W/ FOLIC ACID TABLET (FP) PO SCH (09:51)
[2018-08-13] MEDS: LISINOPRIL 10 MG TABLET (FP) PO SCH (09:51)
[2018-08-13] MEDS: NICOTINE 21 MG/24 HOURS TOPICAL PATCH TD SCH (09:51)
[2018-08-13] MEDS: chlordiazePOXIDE HCL 10 MG CAPSULE PO SCH (10:11)
[2018-08-13 13:37] VITALS: BP 128/77; PULSE 104; TEMP 98.7
== END 2018-08-13 14:06 | disposition home or self-care (01) | DRG 773 ==
LOC: YASAS 19:21 → Y3N 23:57
PROVIDERS: ADMIT Surgery; ATTEND Surgery
PROC: HZ2ZZZZ Detoxification Services for Substance Abuse Treatment (ICD-10-PCS; principal; 2018-08-09)
DX: F10.230 Alcohol dependence with withdrawal, uncomplicated (principal); F11.23 Opioid dependence with withdrawal; F14.20 Cocaine dependence, uncomplicated; F12.20 Cannabis dependence, uncomplicated; F17.213 Nicotine dependence, cigarettes, with withdrawal; F19.24 Other psychoactive substance dependence with psychoactive substance-induced mood disorder; I10 Essential (primary) hypertension; E11.9 Type 2 diabetes mellitus without complications; Z79.84 Long term (current) use of oral hypoglycemic drugs; G47.00 Insomnia, unspecified
CPT/HCPCS: 36415; 71046-TC-FY; 80053; 81003; 82962; 85027; 86593; 93005; 93010; J0735

== ENCOUNTER 2019-02-20 14:57 | Inpatient (IN) | payer BC ==
[2019-02-20 18:20] VITALS: BMI 25.7
--- NOTE | 2019-02-20 19:55 | HP ---
"COWS - Scale Resting Pulse: 1= [place] 81-100 Sweatin= No chills or Flushing Restless Observation: 0= Sits Still Pupil Size: 0= Normal to Room Light Bone or Joint Aches: 2= Severe Diffuse Aches Runny Nose/ Eye Tearin= Constantly Teary/Runny GI Upset > 30mins: 2= Nausea/Diarrhea Tremor Observation: 0= None Yawning Observation: 0= None Anxiety or Irritability: 0= None Goose Flesh Skin: 0=Smooth Skin COWS Score: 9 CIWA Score Nausea/Vomitin Muscle Tremors: None Anxiety: 0-No Anxiety, at Ease Agitation: 0-Normal Activity Paroxysmal Sweats: No Perspiration Orientation: 0-Oriented Tacttile Disturbances: 0-None Auditory Disturbances: 0-None Visual Disturbances: 0-None Headache: 0-None Present CIWA-Ar Total Score: 2 - Admission Criteria [facility]ASAS Guidelines: Admission for Medically Managed Detox: Requires at least one of the followin. CIWA greater than 12 2. Seizures within the past 24 hours 3. Delirium tremens within the past 24 hours 4. Hallucinations within the past 24 hours 5. Acute intervention needed for co occurring medical disorder 6. Acute intervention needed for co occurring psychiatric disorder 7. Severe withdrawal that cannot be handled at a lower level of care (continued vomiting, continued diarrhea, abnormal vital signs) requiring intravenous medication and/or fluids 8. Patient presents the following: None of the above Admission Criteria Met: Admission criteria not met Admitting History and Physical - Smoking History Smoking history: Current every day smoker Have you smoked in the past 12 months: Yes Aproximately how many cigarettes per day: 20 - Alcohol/Substance Use Hx Alcohol Use: Yes Admission [facility] Allergies/Adverse Reactions: Allergies Allergy/AdvReac Type Severity Reaction Status Date / Time lactose Allergy Severe Verified 02/20/19 18:04 pork derived (porcine) Allergy Severe Rash Verified 02/20/19 18:04 No Known Drug Allergies Allergy Verified 02/20/19 18:04 History of Present Illness: pt here requesting detox from heroin use , reports 7 bags heroin yesterday , tried to go to [facility] per pt was denied admission 2/2 abnormal EKG . cocaine : 10-20 bags/ day via inhalation denies iv use cannabis - daily etoh - 1 pint 3 x/week , denies blackouts, tremors or seizures pcp - 3 x/week k2 : 1-2 x /week tobacco :1 ppd PMHX : CVA 2013 ,htn , dm , hld This report was requested by: Preeti Orozco | Reference #: [id number] Others' Prescriptions Patient Name: Abdiel Blunt Date: 1960 Address: [address] [place] [address] Sex: Male Rx Written Rx Dispensed Drug Quantity Days Supply Prescriber Name 11/06/2018 11/06/2018 acetaminophen-cod #3 tablet 20 5 Elias Mckenzie Exam Limitations: No Limitations - Ebola screening Have you traveled outside of the country in the last 21 days: No Have you had contact with anyone from an Ebola affected area: No Do you have a fever: No - Review of Systems Constitutional: Loss of Appetite EENT: reports: No Symptoms Reported Respiratory: reports: No Symptoms reported Cardiac: reports: No Symptoms Reported GI: reports: Nausea, Poor Appetite : reports: No Symptoms Reported Musculoskeletal: reports: Muscle Pain Integumentary: reports: No Symptoms Reported Neuro: reports: No Symptoms reported Endocrine: reports: Other (borderline DM) Psychiatric: reports: Orientated x3, Agitated, Anxious, Depressed Patient History - Patient Medical History Hx Anemia: No Hx Asthma: No Hx Chronic Obstructive Pulmonary Disease (COPD): No Hx Cancer: No Hx Cardiac Disorders: No Hx Congestive Heart Failure: No Hx Hypertension: Yes Hx Hypercholesterolemia: Yes Hx Pacemaker: No HX Cerebrovascular Accident: Yes (OLD CVA 2015 ) Hx Seizures: No Hx Dementia: No Hx Diabetes: Yes (DM type 2) Hx Gastrointestinal Disorders: No Hx Liver Disease: No Hx Genitourinary Disorders: No Hx Sexually Transmitted Disorders: No Hx Renal Disease (ESRD): No Hx Thyroid Disease: No Hx Human Immunodeficiency Virus (HIV): No (LAST 2017 NEGATIVE) Hx Hepatitis C: No Hx Depression: No Hx Suicide Attempt: No Hx Bipolar Disorder: No Hx Schizophrenia: No - Patient Surgical History Past Surgical History: No - Smoking Cessation Smoking history: Current every day smoker Have you smoked in the past 12 months: Yes Aproximately how many cigarettes per day: 20 Cigars Per Day: 0 Hx Chewing Tobacco Use: No Initiated information on smoking cessation: Yes 'Breaking Loose' booklet given: 02/21/19 - Substances abused Alcohol Substance route: Oral Frequency: Daily Amount used: liquor- 1 pint Age of first use: 20 Date of last use: 02/19/19 Heroin Substance route: Inhalation Frequency: Daily Amount used: 10 bags Age of first use: 23 Date of last use: 02/19/19 Marijuana/Hashish Substance route: Smoking Frequency: Daily Amount used: 1 BAG Age of first use: 15 Date of last use: 02/20/19 Crack Substance route: Smoking Frequency: Daily Amount used: 20 bags Age of first use: 15 Date of last use: 02/19/19 K2/Spice Substance route: Smoking Frequency: Daily Amount used: couple of joints Age of first use: 58 Date of last use: 02/19/19 Other Other (specify): kaden dust Substance route: Smoking Frequency: 1-2 times per week Amount used: couple of joints Age of first use: 58 Date of last use: 02/17/19 Admission Physical Exam S - Vital Signs Vital Signs: Vital Signs - 24 hr 02/20/19 18:04 Temperature 97.7 F Pulse Rate 100 H Respiratory 16 Rate Blood Pressure 129/70 - Physical General Appearance: Yes: Mild Distress, Irritable, Anxious HEENTM: Yes: EOMI, Hearing grossly Normal, Normocephalic, Normal Voice, Other ( poor dentition) Respiratory: Yes: Chest Non-Tender, Lungs Clear, Normal Breath Sounds, No Respiratory Distress, No Accessory Muscle Use Neck: Yes: No masses,lesions,Nodules, Trachea in good position Cardiology: Yes: Regular Rhythm, Regular Rate, S1, S2 Abdominal: Yes: Normal Bowel Sounds, Soft Back: Yes: Normal Inspection Musculoskeletal: Yes: Gait Steady Extremities: Yes: Normal Range of Motion, Non-Tender, Other (r hand old frx deformity ( xr 2017 )) Neurological: Yes: Fully Oriented, Alert, Motor Strength 5/5, Normal Mood/Affect Integumentary: Yes: Warm - Addiitonal Findings: QTc 452 ms 08/09/18 - Diagnostic (1) Alcohol dependence Current Visit: Yes Status: Chronic Qualifiers: Substance use status: uncomplicated Qualified Code(s): F10.20 - Alcohol dependence, uncomplicated (2) Nicotine dependence Current Visit: Yes Status: Chronic Qualifiers: Nicotine product type: cigarettes (3) Opioid dependence with withdrawal Current Visit: Yes Status: Chronic (4) Cannabis dependence Current Visit: Yes Status: Chronic (5) Cocaine dependence Current Visit: Yes Status: Chronic Qualifiers: Substance use status: uncomplicated Qualified Code(s): F14.20 - Cocaine dependence, uncomplicated Breathalyzer - Breathalyzer Breathalyzer: 0 Urine Drug Screen - Test Device Lot number: [id number] Expiration date: 11/06/20 - Control Is test valid?: Yes - Results Drug screen NEGATIVE: No Urine drug screen results: THC-Marijuana, STACY-Cocaine, FEN-Fentanyl, MOP-Opiates Inpatient Rehab Admission - Rehab Decision to Admit Inpatient rehab admission?: No"
[2019-02-20] MEDS ORDERED: IBUPROFEN 400 MG TABLET (FP) PO PRN (20:03)
[2019-02-20] MEDS ORDERED: hydrOXYzine PAMOATE 25 MG CAPSULE (FP) PO PRN (20:03)
[2019-02-20] MEDS ORDERED: MAGNESIUM CITRATE 300 ML BOTTLE PO PRN (20:03)
[2019-02-20] MEDS ORDERED: MAGNESIUM HYDROX 2400MG/30ML ORAL SUSPENSION 30 ML CUP PO PRN (20:03)
[2019-02-20] MEDS ORDERED: ACETAMINOPHEN 325 MG TABLET (FP) PO PRN ×2 (20:03)
[2019-02-20] MEDS ORDERED: BISMUTH SUBSALICYLATE 524 MG/30 ML UD PO PRN (20:03)
[2019-02-20] MEDS ORDERED: MENTHOL/PHENOL 1 EACH UD MM PRN (20:03)
[2019-02-20] MEDS ORDERED: METHOCARBAMOL 500 MG TABLET PO PRN (20:03)
[2019-02-20] MEDS ORDERED: MAG HYDROX/AL HYDROX/SIMETH 30 ML UNIT-DOSE CUP PO PRN (20:03)
[2019-02-20] MEDS ORDERED: cloNIDine HCL 0.1 MG TABLET PO PRN (20:04)
[2019-02-20] MEDS ORDERED: clonazePAM 0.5 MG TABLET PO PRN (20:04)
[2019-02-20] MEDS ORDERED: METHADONE HCL 10 MG TABLET (FOR DETOX USE ONLY) PO ONE (21:10)
[2019-02-20] MEDS: THIAMINE HCL 100 MG TABLET (FP) PO SCH (21:14)
[2019-02-20] MEDS: ATORVASTATIN CA 10 MG TABLET (FP) PO SCH (21:14)
[2019-02-20] MEDS: MELATONIN 5 MG TABLETS PO PRN (21:15)
[2019-02-21] MEDS: metFORMIN HCL 500 MG TABLET (FP) PO SCH ×2 (06:10→17:06)
[2019-02-21] MEDS: PRENATAL VITAMINS W/ FOLIC ACID TABLET (FP) PO SCH (09:43)
[2019-02-21] MEDS: amLODIPine BESYLATE 5 MG TABLET (FP) PO SCH (09:43)
[2019-02-21] MEDS ORDERED: METHADONE HCL 5 MG TABLET (FOR DETOX USE ONLY) PO ONE (10:00)
[2019-02-21 10:34] LABS: ALBUMIN 3.2 g/dl (3.4-5.0); BILIRUBIN,TOTAL 0.3 mg/dL (0.2-1); BLOOD UREA NITROGEN 25.6 mg/dL (7-18); CALCIUM 8.5 mg/dL (8.5-10.1); CREATININE 1.2 mg/dL (0.55-1.3); POTASSIUM 3.9 mmol/L (3.5-5.1); TOT PROT 6.2 g/dl (6.4-8.2)
[2019-02-21 10:39] LABS: HEMATOCRIT 35.7 % (35.4-49); HEMOGLOBIN 11.3 GM/dL (11.7-16.9); MCH 23.1 pg (25.7-33.7); MCHC 31.7 g/dl (32.0-35.9); MEAN CELL VOLUME 72.8 fl (80-96); MEAN PLT VOLUME 8.4 fl (7.5-11.1); PLATELET COUNT 255 K/MM3 (134-434); RDW 15.1 % (11.9-15.9); WHITE BLOOD COUNT 4.8 K/mm3 (4.0-10.0)
--- NOTE | 2019-02-21 13:05 | PN ---
S CIWA - CIWA Score Nausea/Vomitin Muscle Tremors: 1-None Visible, but [place] Anxiety: 1-Mildly Anxious Agitation: 1-Slight > Activity Paroxysmal Sweats: 2 Orientation: 0-Oriented Tacttile Disturbances: 1-Very Mild Itch/Numbness Auditory Disturbances: 0-None Visual Disturbances: 0-None Headache: 0-None Present CIWA-Ar Total Score: 9
--- NOTE | 2019-02-21 13:10 | PN ---
S CIWA - CIWA Score Nausea/Vomitin Muscle Tremors: 1-None Visible, but [place] Anxiety: 1-Mildly Anxious Agitation: 0-Normal Activity Paroxysmal Sweats: 2 Orientation: 0-Oriented Tacttile Disturbances: 1-Very Mild Itch/Numbness Auditory Disturbances: 0-None Visual Disturbances: 0-None Headache: 0-None Present CIWA-Ar Total Score: 7 [facility] COWS - Scale Resting Pulse: 1= [place] 81-100 Sweatin= Chills/Flushing Restless Observation: 1= Difficult to Sit Still Pupil Size: 1= Pupils >than Normal Bone or Joint Aches: 1= Mild Discomfort Runny Nose/ Eye Tearin= Nasal Congestion GI Upset > 30mins: 2= Nausea/Diarrhea Tremor Observation of Outstretched Hands: 1= Tremor [place], Not Seen Yawning Observation: 0= None Anxiety or Irritability: 1=Feels Anxious/Irritable Goose Flesh Skin: 0=Smooth Skin COWS Score: 10 S Progress Note (SOAP) Subjective: INTERRUPTED SLEEP, SWEATS, NAUSEA , DRY SKIN Objective: 02/21/19 13:08 Vital Signs Temperature 98.6 F 02/21/19 09:18 Pulse Rate 93 H 02/21/19 09:18 Respiratory Rate 18 02/21/19 09:18 Blood Pressure 156/77 02/21/19 09:18 O2 Sat by Pulse Oximetry (%) Laboratory Tests 02/20/19 02/21/19 02/21/19 20:37 05:39 08:18 WBC 4.8 RBC 4.90 Hgb 11.3 L Hct 35.7 MCV 72.8 L MCH 23.1 L MCHC 31.7 L RDW 15.1 Plt Count 255 MPV 8.4 Sodium Potassium Chloride Carbon Dioxide Anion Gap BUN Creatinine Est GFR (CKD-EPI)AfAm Est GFR (CKD-EPI)NonAf POC Glucometer 71 150 Random Glucose Calcium Total Bilirubin AST ALT Alkaline Phosphatase Total Protein Albumin RPR Titer 02/21/19 02/21/19 08:18 08:18 WBC RBC Hgb Hct MCV MCH MCHC RDW Plt Count MPV Sodium 143 Potassium 3.9 Chloride 112 H Carbon Dioxide 27 Anion Gap 4 L BUN 25.6 H Creatinine 1.2 Est GFR (CKD-EPI)AfAm 77.88 Est GFR (CKD-EPI)NonAf 67.19 POC Glucometer Random Glucose 127 H Calcium 8.5 Total Bilirubin 0.3 AST 19 ALT 19 Alkaline Phosphatase 81 Total Protein 6.2 L Albumin 3.2 L RPR Titer Nonreactive PT AOX3 IN NAD LYING IN BED Assessment: 02/21/19 13:08 WITHDRAWAL SX'S DEHYDRATION Plan: CONT. DETOX INCREASE FLUIDS A-D OINT REPEAT BASIC METABOLIC
--- NOTE | 2019-02-21 13:25 | CONSULT ---
[facility] Psychiatric Consult - Data Date of interview: 02/21/19 Admission source: [facility] Identifying data: This is one of multiple admissions to [facility] for this 58 y/ o AA male referred for detoxification (OLGA issues : alcohol, cocaine, heroin, cannabis/K2). Examined at [address] [place] [address]. Patient is single, a father of three, domiciled, unemployed and supported on SSD/SSI benefits. Substance Abuse History: Discussed with patient. Details in current [facility] report as follows : Smoking history: Current every day smoker. Have you smoked in the past 12 months: Yes. Aproximately how many cigarettes per day: 20. Cigars Per Day: 0. Hx Chewing Tobacco Use: No. - Substances abused. Alcohol. Substance route: Oral. Frequency: Daily. Amount used: liquor- 1 pint. Age of first use: 20. Date of last use: 02/19/19. Heroin. Substance route: Inhalation. Frequency: Daily. Amount used: 10 bags. Age of first use: 23. Date of last use: 02/19/19. Marijuana/Hashish. Substance route: Smoking. Frequency: Daily. Amount used: 1 BAG. Age of first use: 15. Date of last use : 02/20/19. Crack. Substance route: Smoking. Frequency: Daily. Amount used: 20 bags. Age of first use: 15. Date of last use: 02/19/19. K2/ Spice. Substance route: Smoking. Frequency: Daily. Amount used: couple of joints. Age of first use: 58. Date of last use: 02/19/19. Other. Other ( specify): kaden dust. Substance route: Smoking. Frequency: 1-2 times per week. Amount used: couple of joints. Age of first use: 58. Date of last use: 02/17/19 Medical History: Medical profile is remarkable for chronic lumbar pain, dyslipidemia, hypertension, diabetes mellitus (borderline) and a history of CVA with left-sided weakness (2016). Psychiatric History: Patient denies history of psychiatric hospitalizations, suicide attempts or OPD care. Physical/Sexual Abuse/Trauma History: No history. Additional Comment: Urine drug screen results: THC-Marijuana, STACY-Cocaine, FEN- Fentanyl, MOP-Opiates. Noted. Mental Status Exam - Mental Status Exam Alert and Oriented to: Time, Place, Person Cognitive Function: Good Patient Appearance: Well Groomed Mood: Withdrawn, Irritable Affect: Normal Range Patient Behavior: Fatigued, Cooperative (superficially cooperative) Speech Pattern: Clear Voice Loudness: Normal Thought Process: Intact, Goal Oriented Thought Disorder: Not Present Hallucinations: Denies Suicidal Ideation: Denies Homicidal Ideation: Denies Insight/Judgement: Poor Sleep: Well Appetite: Good Gait/Station: Other (not observed; patient supine for entire interview) Psychiatric Findings - Problem List ([place] 1, 2,3) (1) Alcohol dependence with uncomplicated withdrawal Current Visit: Yes Status: Acute (2) Opioid dependence with withdrawal Current Visit: Yes Status: Acute (3) Cannabis dependence Current Visit: Yes Status: Chronic (4) Cocaine dependence Current Visit: Yes Status: Chronic Qualifiers: Substance use status: uncomplicated Qualified Code(s): F14.20 - Cocaine dependence, uncomplicated (5) Nicotine dependence Current Visit: Yes Status: Chronic Qualifiers: Nicotine product type: cigarettes (6) Substance induced mood disorder Current Visit: Yes Status: Chronic (7) Insomnia Current Visit: Yes Status: Chronic - Initial Treatment Plan Initial Treatment Plan: Psychoeducation. Sleep hygiene. Detoxification. Insomnia is addressed with melatonin. Patient declines to take any medication other than drugs intended for detoxification purposes. Observation.
[2019-02-21] MEDS: VITAMINS A AND D TOPICAL OINTMENT 60 GM TUBE TP SCH (17:06)
[2019-02-21] MEDS: THIAMINE HCL 100 MG TABLET (FP) PO SCH (21:07)
[2019-02-21] MEDS: MELATONIN 5 MG TABLETS PO PRN (21:07)
[2019-02-21] MEDS: ATORVASTATIN CA 10 MG TABLET (FP) PO SCH (21:07)
[2019-02-22] MEDS: VITAMINS A AND D TOPICAL OINTMENT 60 GM TUBE TP SCH ×5 (00:09→23:35)
[2019-02-22] MEDS: metFORMIN HCL 500 MG TABLET (FP) PO SCH ×2 (06:01→17:25)
[2019-02-22] MEDS ORDERED: METHADONE HCL 10 MG TABLET (FOR DETOX USE ONLY) PO ONE (10:00)
[2019-02-22] MEDS: PRENATAL VITAMINS W/ FOLIC ACID TABLET (FP) PO SCH (10:08)
[2019-02-22] MEDS: amLODIPine BESYLATE 5 MG TABLET (FP) PO SCH (10:08)
[2019-02-22 10:41] LABS: BLOOD UREA NITROGEN 22.6 mg/dL (7-18); CALCIUM 8.8 mg/dL (8.5-10.1); CREATININE 1.1 mg/dL (0.55-1.3)
--- NOTE | 2019-02-22 13:20 | PN ---
[facility] CIWA - CIWA Score Nausea/Vomitin-No Nausea/No Vomiting Muscle Tremors: None Anxiety: 1-Mildly Anxious Agitation: 0-Normal Activity Paroxysmal Sweats: 2 Orientation: 0-Oriented Tacttile Disturbances: 0-None Auditory Disturbances: 0-None Visual Disturbances: 0-None Headache: 0-None Present CIWA-Ar Total Score: 3 S COWS - Scale Resting Pulse: 0= [place] 80 or Below Sweatin= No chills or Flushing Restless Observation: 0= Sits Still Pupil Size: 0= Normal to Room Light Bone or Joint Aches: 0= None Runny Nose/ Eye Tearin= None GI Upset > 30mins: 0= None Tremor Observation of Outstretched Hands: 0= None Yawning Observation: 1= 1-2x During Session Anxiety or Irritability: 2=Irritable/Anxious Goose Flesh Skin: 0=Smooth Skin COWS Score: 3 [facility] Progress Note (SOAP) Subjective: c/o anxiety, irritability, and sweats. Objective: 02/22/19 13:19 Vital Signs 02/22/19 02/22/19 06:41 09:17 Temperature 99.1 F 99.4 F Pulse Rate 85 83 Respiratory 18 18 Rate Blood Pressure 140/85 128/79 Laboratory Last Values WBC 4.8 K/mm3 (4.0-10.0) 02/21/19 08:18 RBC 4.90 M/mm3 (4.00-5.60) 02/21/19 08:18 Hgb 11.3 GM/dL (11.7-16.9) L 02/21/19 08:18 Hct 35.7 % (35.4-49) 02/21/19 08:18 MCV 72.8 fl (80-96) L 02/21/19 08:18 MCH 23.1 pg (25.7-33.7) L 02/21/19 08:18 MCHC 31.7 g/dl (32.0-35.9) L 02/21/19 08:18 RDW 15.1 % (11.9-15.9) 02/21/19 08:18 Plt Count 255 K/MM3 (134-434) 02/21/19 08:18 MPV 8.4 fl (7.5-11.1) 02/21/19 08:18 Sodium 141 mmol/L (136-145) 02/22/19 07:55 Potassium 4.0 mmol/L (3.5-5.1) 02/22/19 07:55 Chloride 106 mmol/L (98-107) 02/22/19 07:55 Carbon Dioxide 27 mmol/L (21-32) 02/22/19 07:55 Anion Gap 8 MMOL/L (8-16) 02/22/19 07:55 BUN 22.6 mg/dL (7-18) H 02/22/19 07:55 Creatinine 1.1 mg/dL (0.55-1.3) 02/22/19 07:55 Est GFR (CKD-EPI)AfAm 86.52 02/22/19 07:55 Est GFR (CKD-EPI)NonAf 74.65 02/22/19 07:55 POC Glucometer 121 UNITS (80-120) 02/22/19 06:00 Random Glucose 101 mg/dL (74-106) 02/22/19 07:55 Calcium 8.8 mg/dL (8.5-10.1) 02/22/19 07:55 Total Bilirubin 0.3 mg/dL (0.2-1) 02/21/19 08:18 AST 19 U/L (15-37) 02/21/19 08:18 ALT 19 U/L (13-61) 02/21/19 08:18 Alkaline Phosphatase 81 U/L (45-117) 02/21/19 08:18 Total Protein 6.2 g/dl (6.4-8.2) L 02/21/19 08:18 Albumin 3.2 g/dl (3.4-5.0) L 02/21/19 08:18 RPR Titer Nonreactive (NONREACTIVE) 02/21/19 08:18 Labs noted. Assessment: 02/22/19 13:20 AOX3, in no acute respiratory distress. Full ROM, ambulating in the unit. Withdrawal symptoms. For d/c tomorrow. Plan: continue detox. D/c in AM.
[2019-02-22] MEDS: MELATONIN 5 MG TABLETS PO PRN (22:33)
[2019-02-22] MEDS: THIAMINE HCL 100 MG TABLET (FP) PO SCH (22:33)
[2019-02-22] MEDS: ATORVASTATIN CA 10 MG TABLET (FP) PO SCH (22:33)
[2019-02-23] MEDS: VITAMINS A AND D TOPICAL OINTMENT 60 GM TUBE TP SCH ×3 (05:20→17:47)
[2019-02-23] MEDS ORDERED: METHADONE HCL 5 MG TABLET (FOR DETOX USE ONLY) PO ONE (06:00)
[2019-02-23] MEDS: metFORMIN HCL 500 MG TABLET (FP) PO SCH ×2 (06:32→17:15)
--- NOTE | 2019-02-23 09:47 | PN ---
[facility] CIWA - CIWA Score Nausea/Vomitin-No Nausea/No Vomiting Muscle Tremors: 1-None Visible, but [place] Anxiety: 1-Mildly Anxious Agitation: 0-Normal Activity Paroxysmal Sweats: No Perspiration Orientation: 0-Oriented Tacttile Disturbances: 0-None Auditory Disturbances: 0-None Visual Disturbances: 0-None Headache: 0-None Present CIWA-Ar Total Score: 2 S COWS - Scale Resting Pulse: 1= [place] 81-100 Sweatin= Chills/Flushing Restless Observation: 0= Sits Still Pupil Size: 0= Normal to Room Light Bone or Joint Aches: 0= None Runny Nose/ Eye Tearin= None GI Upset > 30mins: 0= None Tremor Observation of Outstretched Hands: 0= None Yawning Observation: 0= None Anxiety or Irritability: 0= None Goose Flesh Skin: 0=Smooth Skin COWS Score: 2 [facility] Progress Note (SOAP) Subjective: 58 years old male admitted on 02/20/19 for alcohol and opiate withdrawal sx management treated with librium and methadone detox regimen tolerated well ate breakfast tolerated food and fluid well discuss aftercare with staff follow up with [facility] or / [facility] Objective: 02/23/19 09:48 Vital Signs Temperature 98.5 F 02/23/19 06:51 Pulse Rate 84 02/23/19 06:51 Respiratory Rate 18 02/23/19 06:51 Blood Pressure 126/71 02/23/19 06:51 O2 Sat by Pulse Oximetry (%) Laboratory Last Values WBC 4.8 K/mm3 (4.0-10.0) 02/21/19 08:18 RBC 4.90 M/mm3 (4.00-5.60) 02/21/19 08:18 Hgb 11.3 GM/dL (11.7-16.9) L 02/21/19 08:18 Hct 35.7 % (35.4-49) 02/21/19 08:18 MCV 72.8 fl (80-96) L 02/21/19 08:18 MCH 23.1 pg (25.7-33.7) L 02/21/19 08:18 MCHC 31.7 g/dl (32.0-35.9) L 02/21/19 08:18 RDW 15.1 % (11.9-15.9) 02/21/19 08:18 Plt Count 255 K/MM3 (134-434) 02/21/19 08:18 MPV 8.4 fl (7.5-11.1) 02/21/19 08:18 Sodium 141 mmol/L (136-145) 02/22/19 07:55 Potassium 4.0 mmol/L (3.5-5.1) 02/22/19 07:55 Chloride 106 mmol/L (98-107) 02/22/19 07:55 Carbon Dioxide 27 mmol/L (21-32) 02/22/19 07:55 Anion Gap 8 MMOL/L (8-16) 02/22/19 07:55 BUN 22.6 mg/dL (7-18) H 02/22/19 07:55 Creatinine 1.1 mg/dL (0.55-1.3) 02/22/19 07:55 Est GFR (CKD-EPI)AfAm 86.52 02/22/19 07:55 Est GFR (CKD-EPI)NonAf 74.65 02/22/19 07:55 POC Glucometer 143 UNITS (80-120) 02/23/19 05:18 Random Glucose 101 mg/dL (74-106) 02/22/19 07:55 Calcium 8.8 mg/dL (8.5-10.1) 02/22/19 07:55 Total Bilirubin 0.3 mg/dL (0.2-1) 02/21/19 08:18 AST 19 U/L (15-37) 02/21/19 08:18 ALT 19 U/L (13-61) 02/21/19 08:18 Alkaline Phosphatase 81 U/L (45-117) 02/21/19 08:18 Total Protein 6.2 g/dl (6.4-8.2) L 02/21/19 08:18 Albumin 3.2 g/dl (3.4-5.0) L 02/21/19 08:18 RPR Titer Nonreactive (NONREACTIVE) 02/21/19 08:18 lab noted Assessment: 02/23/19 09:48 alcohol and opiate withdrawal sx case discuss with counselor and nurse that safe discharge is in process Plan: continue librium and methadone detox regimen
[2019-02-23] MEDS: PRENATAL VITAMINS W/ FOLIC ACID TABLET (FP) PO SCH (10:09)
[2019-02-23] MEDS: amLODIPine BESYLATE 5 MG TABLET (FP) PO SCH (10:09)
[2019-02-23] MEDS: MELATONIN 5 MG TABLETS PO PRN (22:22)
[2019-02-23] MEDS: ATORVASTATIN CA 10 MG TABLET (FP) PO SCH (22:22)
[2019-02-23] MEDS: THIAMINE HCL 100 MG TABLET (FP) PO SCH (22:22)
[2019-02-24] MEDS: VITAMINS A AND D TOPICAL OINTMENT 60 GM TUBE TP SCH ×2 (00:11→05:28)
[2019-02-24] MEDS: metFORMIN HCL 500 MG TABLET (FP) PO SCH (07:58)
[2019-02-24 09:18] VITALS: BP 143/78; PULSE 94; TEMP 99.1
[2019-02-24] MEDS: amLODIPine BESYLATE 5 MG TABLET (FP) PO SCH (10:15)
[2019-02-24] MEDS: PRENATAL VITAMINS W/ FOLIC ACID TABLET (FP) PO SCH (10:15)
--- NOTE | 2019-02-24 11:56 | DS ---
[facility] Detox Discharge Summary Admission Date: 02/20/19 Discharge Date: 02/24/19 - History Present History: Alcohol Dependence, Opioid Dependence Additional Comments: 58 years old male admitted on 02/20/19 for alcohol and opiate withdrawal sx management treated with librium and methadone detox regimen patient is alert oriented x 3 cardiac S1S2 regular rate rhythm respiratory clear lung bilaterally on auscultation extremities full range of motion - Physical Exam Results Vital Signs: Vital Signs Temperature 99.1 F 02/24/19 09:17 Pulse Rate 94 H 02/24/19 09:17 Respiratory Rate 18 02/24/19 09:17 Blood Pressure 143/78 02/24/19 09:17 O2 Sat by Pulse Oximetry (%) Pertinent Admission Physical Exam Findings: alcohol and opiate withdrawal sx Laboratory Last Values WBC 4.8 K/mm3 (4.0-10.0) 02/21/19 08:18 RBC 4.90 M/mm3 (4.00-5.60) 02/21/19 08:18 Hgb 11.3 GM/dL (11.7-16.9) L 02/21/19 08:18 Hct 35.7 % (35.4-49) 02/21/19 08:18 MCV 72.8 fl (80-96) L 02/21/19 08:18 MCH 23.1 pg (25.7-33.7) L 02/21/19 08:18 MCHC 31.7 g/dl (32.0-35.9) L 02/21/19 08:18 RDW 15.1 % (11.9-15.9) 02/21/19 08:18 Plt Count 255 K/MM3 (134-434) 02/21/19 08:18 MPV 8.4 fl (7.5-11.1) 02/21/19 08:18 Sodium 141 mmol/L (136-145) 02/22/19 07:55 Potassium 4.0 mmol/L (3.5-5.1) 02/22/19 07:55 Chloride 106 mmol/L (98-107) 02/22/19 07:55 Carbon Dioxide 27 mmol/L (21-32) 02/22/19 07:55 Anion Gap 8 MMOL/L (8-16) 02/22/19 07:55 BUN 22.6 mg/dL (7-18) H 02/22/19 07:55 Creatinine 1.1 mg/dL (0.55-1.3) 02/22/19 07:55 Est GFR (CKD-EPI)AfAm 86.52 02/22/19 07:55 Est GFR (CKD-EPI)NonAf 74.65 02/22/19 07:55 POC Glucometer 131 UNITS (80-120) 02/24/19 05:29 Random Glucose 101 mg/dL (74-106) 02/22/19 07:55 Calcium 8.8 mg/dL (8.5-10.1) 02/22/19 07:55 Total Bilirubin 0.3 mg/dL (0.2-1) 02/21/19 08:18 AST 19 U/L (15-37) 02/21/19 08:18 ALT 19 U/L (13-61) 02/21/19 08:18 Alkaline Phosphatase 81 U/L (45-117) 02/21/19 08:18 Total Protein 6.2 g/dl (6.4-8.2) L 02/21/19 08:18 Albumin 3.2 g/dl (3.4-5.0) L 02/21/19 08:18 RPR Titer Nonreactive (NONREACTIVE) 02/21/19 08:18 lab noted - Treatment Hospital Course: Detox Protocol Followed, Detoxed Safely, Responded well, Discharged Condition Good, Rehab Referral Accepted Patient has Accepted a Rehab Referral to: [facility] - Medication Discharge Medications: Ambulatory Orders Escitalopram Oxalate [Lexapro -] 10 mg PO DAILY #30 tablet 01/31/17 Amlodipine Besylate [Norvasc -] 5 mg PO DAILY #30 tablet 08/12/18 Atorvastatin Ca [Lipitor] 10 mg PO HS #30 tablet 08/12/18 Lisinopril [Prinivil] 10 mg PO DAILY #30 tablet 08/12/18 Naloxone HCl [Narcan -] 0.4 mg IVPUSH PRN PRN #1 vial 08/12/18 Naltrexone HCl [Revia -] 50 mg PO DAILY #30 tablet 08/12/18 Metformin HCl [Glucophage] 500 mg PO BID 02/20/19 - Diagnosis (1) Alcohol dependence with uncomplicated withdrawal Status: Acute (2) Opioid dependence with withdrawal Status: Acute (3) DM2 (diabetes mellitus, type 2) Status: Chronic Qualifiers: Diabetes mellitus disability insurance hearing officer insulin use: without disability insurance hearing officer use Diabetes mellitus complication status: without complication Qualified Code(s): E11.9 - Type 2 diabetes mellitus without complications (4) Essential (primary) hypertension Status: Chronic (5) Hyperlipidemia Status: Chronic Qualifiers: Hyperlipidemia type: pure hypercholesterolemia Qualified Code(s): E78.00 - Pure hypercholesterolemia, unspecified (6) Nicotine dependence Status: Acute Qualifiers: Nicotine product type: cigarettes Substance use status: in withdrawal Qualified Code(s): F17.213 - Nicotine dependence, cigarettes, with withdrawal (7) Substance induced mood disorder Status: Suspected - AMA Did Patient Leave Against Medical Advice: No CIWA Score - CIWA Score Nausea/Vomitin-No Nausea/No Vomiting Muscle Tremors: None Anxiety: 0-No Anxiety, at Ease Agitation: 0-Normal Activity Paroxysmal Sweats: No Perspiration Orientation: 0-Oriented Tacttile Disturbances: 0-None Auditory Disturbances: 0-None Visual Disturbances: 0-None Headache: 0-None Present CIWA-Ar Total Score: 0 COWS (PN) - Opiate Withdrawal Resting Pulse: 1= [place] 81-100 Sweatin= No chills or Flushing Restless Observation: 0= Sits Still Pupil Size: 0= Normal to Room Light Bone or Joint Aches: 0= None Runny Nose/ Eye Tearin= None GI Upset > 30mins: 0= None Tremor Observation of Outstretched Hands: 0= None Yawning Observation: 0= None Anxiety or Irritability: 0= None Goose Flesh Skin: 0=Smooth Skin SAMMI Score: 1
== END 2019-02-24 11:09 | disposition home or self-care (01) | DRG 773 ==
LOC: YASAS 14:57 → Y3N 20:43
PROVIDERS: ADMIT Allergy & Immunology; ATTEND Allergy & Immunology
PROC: HZ2ZZZZ Detoxification Services for Substance Abuse Treatment (ICD-10-PCS; principal; 2019-02-20)
PROC: HZ2ZZZZ Detoxification Services for Substance Abuse Treatment (ICD-10-PCS; 2019-02-20)
DX: F10.230 Alcohol dependence with withdrawal, uncomplicated (principal); F11.23 Opioid dependence with withdrawal; F14.20 Cocaine dependence, uncomplicated; F12.20 Cannabis dependence, uncomplicated; F16.10 Hallucinogen abuse, uncomplicated; F19.10 Other psychoactive substance abuse, uncomplicated; F17.210 Nicotine dependence, cigarettes, uncomplicated; F19.24 Other psychoactive substance dependence with psychoactive substance-induced mood disorder; I10 Essential (primary) hypertension; E78.5 Hyperlipidemia, unspecified; E11.9 Type 2 diabetes mellitus without complications; Z79.84 Long term (current) use of oral hypoglycemic drugs; I69.854 Hemiplegia and hemiparesis following other cerebrovascular disease affecting left non-dominant side; Z91.02 Food additives allergy status; Z91.018 Allergy to other foods
CPT/HCPCS: 36415; 80048; 80053; 82962; 85027; 86593